=== PATIENT | male | born 1940 | race Caucasian/White ===

== ENCOUNTER 2017-09-10 07:03 | Emergency (ER) | payer MEDICARE ==
[2017-09-10 07:14] VITALS: RESP 18
[2017-09-10] MEDS ORDERED: SODIUM CHLORIDE 0.9% 1,000 ML IV STA (07:24)
[2017-09-10] MEDS ORDERED: PANTOPRAZOLE 40 MG/10 ML VIAL IVP STA (07:24)
[2017-09-10] MEDS ORDERED: LISINOPRIL 2.5 MG TAB PO STA (07:52)
--- NOTE | 2017-09-10 07:53 | ED ---
Recheck HPI - General Chief Complaint: Recheck/Abnormal Lab/Rx Stated Complaint: poss anxiety, poss low blood sugar Time Seen by Provider: 09/10/17 07:30 Source: patient, RN notes reviewed Mode of arrival: wheelchair Limitations: no limitations - History of Present Illness Initial Comments: This is a 77-year-old male with a history of a pacemaker who is here for evaluation after being sent over from the lab where he was to have blood drawn today. He recently is been taking care of his was been ill for last several years to having issues with what is thought to be esophageal spasm he was diagnosed with this possibility by his physician. He was given a small dose of Ativan to take when she does not like to take the findings with yesterday and states it did help. He's here today for evaluation he does have a history of occasional palpitations but no overt chest pain fevers chills nausea vomiting sweats or other symptoms at this time. He still doesn't quite feel right. He did have a new battery placed in March this past year. No other modifying factors at this time no recent illnesses. MD Complaint: other - Related Data Home Medications Medication Instructions Recorded Confirmed Aspirin [Adult Low Dose Aspirin EC] 81 mg PO DAILY 07/18/15 03/09/17 Lisinopril [Zestril] 2.5 mg PO BID 07/18/15 03/09/17 Metoprolol Succinate (ER) [Toprol 50 mg PO HS 07/19/15 03/09/17 XL] Levothyroxine Sodium [Synthroid] 25 mcg PO DAILY 09/13/15 03/09/17 Previous Rx's Medication Instructions Recorded Cephalexin [Keflex] 500 mg PO TID #15 cap 03/09/17 Allergies Allergy/AdvReac Type Severity Reaction Status Date / Time procaine [From Novocain] Allergy Rapid Verified 09/10/17 07:13 Heart Rate Review of Systems ROS Statement: Those systems with pertinent positive or pertinent negative responses have been documented in the HPI. ROS Other: All systems not noted in ROS Statement are negative. Past Medical History Past Medical History: Hyperlipidemia, Hypertension, Myocardial Infarction ([place]), Thyroid Disorder Additional Past Medical History / Comment(s): " See Dr. Carlisle's H&P. CYST ON KIDNEYS" pacemaker Last Myocardial Infarction Date:: 2008 History of Any Multi-Drug Resistant Organisms: None Reported Past Surgical History: Cholecystectomy, Heart Catheterization With Stent, Joint Replacement, Pacemaker Additional Past Surgical History / Comment(s): 08-03-15 HEART CATH W STENT TO RCA Past Anesthesia/Blood Transfusion Reactions: Postoperative Nausea & Vomiting ( PONV) Date of Last Stent Placement:: 2014 Type of Cardiac Device: Permanent Pacemaker Device Placement Date:: 2008 Past Psychological History: Anxiety Smoking Status: Former smoker Past Alcohol Use History: None Reported Past Drug Use History: None Reported - Past Family History Father Family Medical History: No Reported History Mother Additional Family Medical History / Comment(s): AA Brother(s) Family Medical History: Cancer General Exam - General Exam Comments Initial Comments: This is a well-developed well-nourished awake alert oriented times 3 male Limitations: no limitations General appearance: alert, in no apparent distress, anxious Head exam: Present: atraumatic, normocephalic, normal inspection Eye exam: Present: normal appearance, PERRL, EOMI. Absent: scleral icterus, conjunctival injection, periorbital swelling ENT exam: Present: normal exam, mucous membranes moist Neck exam: Present: normal inspection. Absent: tenderness, meningismus, lymphadenopathy Respiratory exam: Present: normal lung sounds bilaterally. Absent: respiratory distress, wheezes, rales, rhonchi, stridor Cardiovascular Exam: Present: regular rate, normal rhythm, normal heart sounds. Absent: systolic murmur, diastolic murmur, rubs, gallop, clicks GI/Abdominal exam: Present: soft, normal bowel sounds. Absent: distended, tenderness, guarding, rebound, rigid Extremities exam: Present: normal inspection, full ROM, normal capillary refill. Absent: tenderness, pedal edema, joint swelling, calf tenderness Back exam: Present: normal inspection Neurological exam: Present: alert, oriented X3, CN II-XII intact Psychiatric exam: Present: normal affect, anxious Skin exam: Present: warm, dry, intact, normal color. Absent: rash Course Vital Signs 09/10/17 09/10/17 07:09 08:03 Temperature 98.2 F Pulse Rate 67 71 Respiratory 18 18 Rate Blood Pressure 164/83 149/73 O2 Sat by Pulse 100 99 Oximetry Medical Decision Making - Medical Decision Making I did a long session with patient family regarding findings patient will be discharged with follow-up as planned with GI. We did discuss Ativan that he does have the take it if he needs a EKGs without become addictive. He was concerned about this. No further palpitations. - Lab Data Result diagrams: 09/10/17 07:49 09/10/17 07:49 Lab Results 09/10/17 09/10/17 09/10/17 Range/Units 07:49 07:49 07:49 WBC 6.0 (3.8-10.6) k/uL RBC 4.95 (4.30-5.90) m/uL Hgb 15.7 (13.0-17.5) gm/dL Hct 46.9 (39.0-53.0) % MCV 94.7 (80.0-100.0) fL MCH 31.6 (25.0-35.0) pg MCHC 33.4 (31.0-37.0) g/dL RDW 12.8 (11.5-15.5) % Plt Count 265 (150-450) k/uL Neutrophils % 74 % Lymphocytes % 15 % Monocytes % 7 % Eosinophils % 1 % Basophils % 0 % Neutrophils # 4.5 (1.3-7.7) k/uL Lymphocytes # 0.9 L (1.0-4.8) k/uL Monocytes # 0.4 (0-1.0) k/uL Eosinophils # 0.1 (0-0.7) k/uL Basophils # 0.0 (0-0.2) k/uL Sodium 141 (137-145) mmol/L Potassium 4.7 (3.5-5.1) mmol/L Chloride 106 (98-107) mmol/L Carbon Dioxide 21 L (22-30) mmol/L Anion Gap 14 mmol/L BUN 21 H (9-20) mg/dL Creatinine 0.90 (0.66-1.25) mg/dL Est GFR (CKD-EPI)AfAm >90 (>60 ml/min/1.73 sqM) Est GFR (CKD-EPI)NonAf 83 (>60 ml/min/1.73 sqM) Glucose 101 H (74-99) mg/dL Calcium 9.4 (8.4-10.2) mg/dL Magnesium 1.9 (1.6-2.3) mg/dL Total Bilirubin 0.8 (0.2-1.3) mg/dL AST 29 (17-59) U/L ALT 31 (21-72) U/L Alkaline Phosphatase 63 (38-126) U/L Total Creatine Kinase 59 (55-170) U/L CK-MB (CK-2) 0.8 (0.0-2.4) ng/mL CK-MB (CK-2) Rel Index 1.4 Troponin I <0.012 (0.000-0.034) ng/mL Total Protein 7.4 (6.3-8.2) g/dL Albumin 4.5 (3.5-5.0) g/dL Triglycerides 106 (<150) mg/dL Cholesterol 177 (<200) mg/dL LDL Cholesterol, Calc 108 H (0-99) mg/dL HDL Cholesterol 48 (40-60) mg/dL Amylase 113 H (30-110) U/L Lipase 178 (23-300) U/L TSH 3.130 (0.465-4.680) mIU/L - EKG Data -: EKG Interpreted by Me (Sinus rhythm left exodeviation LVH old inferior changes ventricular rate is) - Radiology Data Radiology results: report reviewed (I did review the imaging and report no acute findings.), image reviewed Disposition Clinical Impression: Palpitations, Anxiety, Feared condition not demonstrated Disposition: HOME SELF-CARE Condition: Good Instructions: Palpitations (ED), Anxiety (ED) Is patient prescribed a controlled substance at d/c from ED?: No Referrals: Pan Encinas MD [Primary Care Provider] - 1-2 days
[2017-09-10 08:11] LABS: Basophils % (A) 0 %; Eosinophils # (A) 0.1 k/uL (0-0.7); Eosinophils % (A) 1 %; HCT 46.9 % (39.0-53.0); HGB 15.7 gm/dL (13.0-17.5); Lymphocytes # (A) 0.9 k/uL (1.0-4.8); Lymphocytes % (A) 15 %; MCH 31.6 pg (25.0-35.0); MCHC 33.4 g/dL (31.0-37.0); MCV 94.7 fL (80.0-100.0); Mean Platelet Volume 7.3; Monocytes # (A) 0.4 k/uL (0-1.0); Monocytes % (A) 7 %; Neutrophils # (A) 4.5 k/uL (1.3-7.7); Neutrophils % (A) 74 %; Platelet Count 265 k/uL (150-450); RBC 4.95 m/uL (4.30-5.90); RDW 12.8 % (11.5-15.5)
[2017-09-10 08:18] LABS: ALT 31 U/L (21-72); AST 29 U/L (17-59); Albumin 4.5 g/dL (3.5-5.0); Alkaline Phosphatase 63 U/L (38-126); Amylase 113 U/L (30-110); Anion Gap 14 mmol/L; Blood Urea Nitrogen 21 mg/dL (9-20); Calcium 9.4 mg/dL (8.4-10.2); Carbon Dioxide 21 mmol/L (22-30); Chloride 106 mmol/L (98-107); Cholesterol 177 mg/dL (<200); Glucose 101 mg/dL (74-99); HDL Cholesterol 48 mg/dL (40-60); LDL Cholesterol,Calculated 108 mg/dL (0-99); Lipase 178 U/L (23-300); Magnesium 1.9 mg/dL (1.6-2.3); Potassium 4.7 mmol/L (3.5-5.1); Sodium 141 mmol/L (137-145); Total Bilirubin 0.8 mg/dL (0.2-1.3); Total Protein 7.4 g/dL (6.3-8.2); Triglycerides 106 mg/dL (<150)
--- NOTE | 2017-09-10 08:19 | XR ---
EXAMINATION TYPE: XR chest 2V DATE OF EXAM: 09/10/2017 COMPARISON: Chest x-ray August 29, 2015 HISTORY: Cough. Chest discomfort. TECHNIQUE: Frontal and lateral views of the chest are obtained. FINDINGS: Small calcified nodules left lung apex are redemonstrated. There is no focal air space opac ity, pleural effusion, or pneumothorax seen. The cardiac silhouette size is within normal limits wit h dual lead pacemaker/AICD redemonstrated. Large clips left humeral head level are again identified. IMPRESSION: No acute cardiopulmonary process. No significant change from prior.
[2017-09-10 08:27] LABS: Creatine Kinase 59 U/L (55-170)
[2017-09-10 08:40] LABS: Creatine Kinase MB 0.8 ng/mL (0.0-2.4); Troponin I <0.012 ng/mL (0.000-0.034)
[2017-09-10 09:40] VITALS: BP 150/72; PULSE 81; TEMP 97.4
== END 2017-09-10 09:38 | disposition home or self-care (01) ==
LOC: EC 07:03
DX: F41.9 Anxiety disorder, unspecified (principal); R00.2 Palpitations; I10 Essential (primary) hypertension; I25.2 Old myocardial infarction; E07.9 Disorder of thyroid, unspecified; Z95.0 Presence of cardiac pacemaker; Z95.5 Presence of coronary angioplasty implant and graft; Z87.891 Personal history of nicotine dependence; Z79.82 Long term (current) use of aspirin; Z79.899 Other long term (current) drug therapy; Z88.4 Allergy status to anesthetic agent
CPT/HCPCS: 36415; 71046; 80053; 80061; 82150; 82550; 82553; 83690; 83735; 84443; 84484; 85025; 93005; 99284

== ENCOUNTER → 2017-09-10 | Outpatient (CLI) | payer MEDICARE | END | disposition home or self-care (01) | LOC: LABWHC1 06:46 | PROVIDERS: ATTEND Internal Medicine | DX: Z53.9 Procedure and treatment not carried out, unspecified reason (principal) ==

== ENCOUNTER 2017-09-28 07:40 | Day surgery (SDC) | payer MEDICARE ==
[2017-09-26 12:18] VITALS: BMI 24.3
[~2017-09-28 07:40] MED LIST: LACTATED RINGERS 1,000 ML IV SCH
[2017-09-28 08:38] VITALS: RESP 16; TEMP 98.5
[2017-09-28] MEDS ORDERED: LIDOCAINE 1% 20 ML VIAL (10MG/ML) FOR IV START INTRADERMA ONE (08:48)
[2017-09-28 08:53] LABS: Glucose,Whole Blood 91 mg/dL (75-99)
[2017-09-28] MEDS ORDERED: fentaNYL (PF) 50 MCG/ML 2 ML AMP ONE (09:23)
[2017-09-28] MEDS ORDERED: MIDAZOLAM 2 MG/2 ML VIAL ONE (09:23)
[2017-09-28] MEDS ORDERED: PROPOFOL 10 MG/ML 20 ML VIAL IV ONE (09:23)
--- NOTE | 2017-09-28 09:37 | P.PCN ---
Date of Procedure: 09/28/17 Procedure(s) Performed: BRIEF HISTORY: Patient is a 77-year-old, pleasant, male, scheduled for an upper endoscopy as a part of evaluation of intermittent heartburn, passive regurgitation and allow for the last 3 months duration. He was recently started on Prilosec 20 mg daily and symptoms have improved. He is having episodes of passive regurgitation with bending and occasional esophageal spasms while in distress. He is hence scheduled for an upper endoscopy to evaluate further PROCEDURE PERFORMED: Esophagogastroduodenoscopy with biopsy. PREOPERATIVE DIAGNOSIS: And GERD/esophageal spasm. IV sedation per anesthesia. PROCEDURE: After informed consent was obtained, the patient was brought into the endoscopy unit. IV sedation was administered by Anesthesia under continuous monitoring. Initially the Olympus GIF-140 video endoscope was inserted into the mouth. Esophagus intubated without any difficulty. It was gradually advanced into the stomach and duodenum and carefully examined. The bulb and the second part of the duodenum appeared normal. The scope at this time was withdrawn to the stomach, adequately insufflated with air, and upon careful examination, mucosa of the antrum, body, cardia and the fundus appeared normal. The scope was then withdrawn into the esophagus. Small hiatal hernia noted. The GE junction was located at 39 cm from the incisors. There was a short segment of Aguirre's esophagus and a 5 mm possible to the GE junction and this was biopsied. The rest of the esophagus appeared normal. There were no erosions or ulcerations seen and the patient tolerated the procedure well. IMPRESSION: 1. Small hiatal hernia. 2. Short segment Aguirre's esophagus status post. RECOMMENDATIONS: The findings of this examination were discussed with the patient is well as his family. He was advised to follow with the biopsy results. If the biopsy confirms the presence of Aguirre's esophagus, he can have a repeat upper endoscopy in 2 years. He was advised to remain on Prilosec 20 mg daily and follow antireflux measures..
[2017-09-28 10:04] VITALS: BP 132/85; PULSE 63
== END 2017-09-28 10:31 | disposition home or self-care (01) ==
LOC: ORWHC2ENDO 07:40
PROVIDERS: ATTEND Internal Medicine Gastroenterology
DX: K21.0 Gastro-esophageal reflux disease with esophagitis (principal); K22.4 Dyskinesia of esophagus; K44.9 Diaphragmatic hernia without obstruction or gangrene; K22.70 Barrett's esophagus without dysplasia; I10 Essential (primary) hypertension; E78.5 Hyperlipidemia, unspecified; E07.9 Disorder of thyroid, unspecified; I25.10 Atherosclerotic heart disease of native coronary artery without angina pectoris; I25.2 Old myocardial infarction; Z95.0 Presence of cardiac pacemaker; Z95.5 Presence of coronary angioplasty implant and graft; Z79.890 Hormone replacement therapy; Z79.899 Other long term (current) drug therapy; Z88.4 Allergy status to anesthetic agent
CPT/HCPCS: 88305; 43239; J2250; J3010; J2704

== ENCOUNTER → 2018-07-18 | Outpatient (CLI) | payer MEDICARE ==
--- NOTE | 2018-07-18 07:54 | XR ---
EXAMINATION TYPE: XR chest 2V DATE OF EXAM: 07/18/2018 COMPARISON: 09/10/2017 HISTORY: Shortness of breath TECHNIQUE: Frontal and lateral views of the chest are obtained. FINDINGS: Scattered senescent parenchymal changes noted. Hyperinflation compatible with COPD. No evidence for infiltrate. No evidence for atelectasis. Heart size is stable. Mediastinal structures are stable and grossly unremarkable. No evidence for hilar prominence. Degenerative changes dorsal spine. IMPRESSION: 1. No evidence for acute pulmonary disease.
== END | disposition home or self-care (01) ==
LOC: RADXRMAIN 06:03
PROVIDERS: ATTEND Internal Medicine Cardiovascular Disease
DX: I25.5 Ischemic cardiomyopathy (principal)
CPT/HCPCS: 71046

== ENCOUNTER → 2019-03-06 | Outpatient (CLI) | payer MEDICARE ==
--- NOTE | 2019-03-06 12:02 | US ---
EXAMINATION TYPE: US kidneys/renal and bladder DATE OF EXAM: 03/06/2019 COMPARISON: CT 2012 CLINICAL HISTORY: N28.0 Renal cyst. History of renal cysts EXAM MEASUREMENTS: Right Kidney: 10.7 x 5.6 x 5.8 cm Left Kidney: 12.2 x 5.4 x 5.4 cm Right Kidney: multiple small cortical cystic areas with largest measuring 1.5cm, 0.5cm echogenic focu s superior pole Left Kidney: multiple cystic areas with largest measuring 4.1 x 4.3 x 4.0cm Bladder: wnl Bilateral Jets seen: yes There is no evidence for hydronephrosis at this point in time. No nephrolithiasis is seen. No suspi cious masses are identified. The urinary bladder is anechoic. Bilateral ureteral jets are seen. IMPRESSION: Multiple bilateral renal cysts are seen that appears simple in nature with increased thro ugh transmission. The largest on the left measures 4.1 cm and on the right measures 1.5 cm.
== END ==
LOC: RADUSWWP 10:50
PROVIDERS: ATTEND Urology
DX: N28.1 Cyst of kidney, acquired (principal)
CPT/HCPCS: 76770

== ENCOUNTER → 2019-12-19 | Outpatient (CLI) | payer MEDICARE ==
[2019-12-19 08:38] LABS: HCT 46.6 % (39.0-53.0); MCH 30.9 pg (25.0-35.0); MCHC 32.2 g/dL (31.0-37.0); MCV 95.9 fL (80.0-100.0); Mean Platelet Volume 7.6; Platelet Count 260 k/uL (150-450); RBC 4.86 m/uL (4.30-5.90); RDW 12.4 % (11.5-15.5); WBC 6.6 k/uL (3.8-10.6)
[2019-12-19 08:54] LABS: Appearance,Urine Cloudy (Clear); Bacteria,Urine Rare /hpf; Bilirubin,Urine Negative (Negative); Blood,Urine Trace (Negative); Color,Urine Light Yellow; Glucose,Urine (UA) Negative (Negative); Ketones,Urine Negative (Negative); Leukocyte Esterase,Urine Negative (Negative); Mucus,Urine Rare /hpf; Nitrite,Urine Negative (Negative); PH, Urine 5.5 (5.0-8.0); Protein,Urine Negative (Negative); RBC,Urine 8 /hpf (0-5); Specific Gravity,Urine 1.012 (1.001-1.035); Urobilinogen,Urine <2.0 mg/dL (<2.0); WBC,Urine <1 /hpf (0-5)
[2019-12-19 18:33] LABS: African American GFR (CKD) 94.5 (60.0-200.0); Albumin 4.1 g/dL (3.80-4.90); Albumin/Globulin Ratio 1.86 (1.60-3.17); Anion Gap 8.6 mmol/L (4.00-12.00); BUN/Creat Ratio 24.44 Ratio (12.00-20.00); Calcium 8.9 mg/dL (8.7-10.3); Carbon Dioxide 21.4 mmol/L (21.6-31.8); Globulin 2.2 g/dL (1.6-3.3); Non-African American GFR(CKD) 81.5 (60.0-200.0); Potassium 4.5 mmol/L (3.5-5.5); Total Bilirubin 0.7 mg/dL (0.2-1.2); Total Protein 6.3 g/dL (6.2-8.2)
[2019-12-19 18:42] LABS: T4, Free (Free Thyroxine) 1.4 ng/dL (0.80-1.80)
== END | disposition home or self-care (01) ==
LOC: LABWHC1 07:05
PROVIDERS: ATTEND Physician Assistant
DX: Z00.00 Encounter for general adult medical examination without abnormal findings (principal); Z13.220 Encounter for screening for lipoid disorders; R53.83 Other fatigue
CPT/HCPCS: 36415; 80053; 81001; 84439; 84443; 85027

== ENCOUNTER → 2020-02-13 | Outpatient (CLI) | payer MEDICARE ==
[2020-02-13 11:08] LABS: Chol/HDL Ratio 3.9; LDL Cholesterol,Calculated 123.6 mg/dL (0.0-131.0); VLDL Calculation 18.4 mg/dL (5.00-40.00)
== END | disposition home or self-care (01) ==
LOC: LABWHC1 07:01
PROVIDERS: ATTEND Internal Medicine
DX: E78.5 Hyperlipidemia, unspecified (principal)
CPT/HCPCS: 36415; 80061

== ENCOUNTER 2020-12-02 10:47 | Inpatient (IN) | payer MEDICARE ==
[2020-12-02] MEDS ORDERED: SODIUM CHLORIDE 0.9% 500 ML 500 ML IV STA (10:55)
[2020-12-02] MEDS ORDERED: AMIODARONE 360 MG in DEXTROSE 5% IN WATER 200 ML IV ONE ×2 (10:56)
--- NOTE | 2020-12-02 11:00 | ED ---
General Adult HPI - General Stated complaint: chest pain Time Seen by Provider: 12/02/20 10:50 Source: patient, RN notes reviewed, old records reviewed - History of Present Illness Initial comments: This is a 80-year-old male with a past medical history significant for coronary artery disease. Patient states that multiple stents placed in the past. Patient states he has ICD. Patient states he was golfing felt fine and he felt a little lightheaded and is defibrillator shocked him after chocked and he went down to his knees and then got up and started to walk it shocked him again he started walking again and shocked him a time. When EMS arrived patient was in trigeminy and then went into bigeminy and then they saw runs of V. tach and stated that the patient again felt lightheaded gave the patient 150 mg of amiodarone. Patient currently states he feels at his baseline he has no chest pain no palpitations no difficulty breathing shortness breath. Patient states he did have a discomfort in his chest just prior to him being shocked he states he thought it might be an esophageal spasm. Patient denies any abdominal pain patient denies nausea vomiting diarrhea. Patient denies having any fever chills or cough. - Related Data Home Medications Medication Instructions Recorded Confirmed lisinopriL [Zestril] 2.5 mg PO BID 07/18/15 09/28/17 Levothyroxine Sodium [Synthroid] 25 mcg PO DAILY 09/13/15 09/28/17 LORazepam [Ativan] 0.5 mg PO TID PRN 09/26/17 09/28/17 Allergies Allergy/AdvReac Type Severity Reaction Status Date / Time codeine AdvReac Abdominal Verified 12/02/20 12:13 Pain procaine [From Novocain] AdvReac Rapid Verified 12/02/20 12:12 Heart Rate Review of Systems ROS Statement: Those systems with pertinent positive or pertinent negative responses have been documented in the HPI. ROS Other: All systems not noted in ROS Statement are negative. Past Medical History Past Medical History: GERD/Reflux, Hyperlipidemia, Hypertension, Myocardial Infarction ([place]), Thyroid Disorder Additional Past Medical History / Comment(s): HX BRADYCARDIA. SM BENIGN CYSTS ON KIDNEYS. Pacemaker. HYPOGLYCEMIA. C/O "SPASMS IN LOWER PART OF ESOPHAGUS OCC," ALOT OF BELCHING. HX VARICOSE VEINS. Last Myocardial Infarction Date:: 2008 History of Any Multi-Drug Resistant Organisms: None Reported Past Surgical History: Cholecystectomy, Heart Catheterization With Stent, Joint Replacement, Pacemaker Additional Past Surgical History / Comment(s): 08-03-15 HEART CATH W STENT TO RCA. STATES "3 STENTS." PACEMAKER 2009; GENERATOR CHANGE 03/2017. VARICOSE VEIN LASER PROC ANI. COLONOSCOPY. Past Anesthesia/Blood Transfusion Reactions: Postoperative Nausea & Vomiting (PONV) Date of Last Stent Placement:: 2015 Type of Cardiac Device: Permanent Pacemaker Device Placement Date:: 2008 Past Psychological History: Anxiety Past Alcohol Use History: None Reported Additional Past Alcohol Use History / Comment(s): STARTED SMOKING AT AGE 19 SMOKED 1 PPD, QUIT 2008. NO ETOH USE IN 20 YEARS Past Drug Use History: None Reported - Past Family History Mother Additional Family Medical History / Comment(s): AA Brother(s) Family Medical History: Cancer General Exam - General Exam Comments Initial Comments: GENERAL: Patient is well-developed and well-nourished. Patient is nontoxic and well- hydrated and is in no acute distress. ENT: Neck is soft and supple. No significant lymphadenopathy is noted. Oropharynx is clear. Moist mucous membranes. Neck has full range of motion without eliciting any pain. EYES: The sclera were anicteric and conjunctiva were pink and moist. Extraocular movements were intact and pupils were equal round and reactive to light. Eyelids were unremarkable. PULMONARY: Unlabored respirations. Good breath sounds bilaterally. No audible rales rhonchi or wheezing was noted. CARDIOVASCULAR: There is a regular rate and rhythm without any murmurs gallops or rubs. Patient has an occasional extrasystole ABDOMEN: Soft and nontender with normal bowel sounds. No palpable organomegaly was noted. There is no palpable pulsatile mass. SKIN: Skin is clear with no lesions or rashes and otherwise unremarkable. NEUROLOGIC: Patient is alert and oriented x3. Cranial nerves II through XII are grossly intact. Motor and sensory are also intact. Normal speech, volume and content. Symmetrical smile. MUSCULOSKELETAL: Normal extremities with adequate strength and full range of motion. No lower extremity swelling or edema. No calf tenderness. LYMPHATICS: No significant lymphadenopathy is noted PSYCHIATRIC: Normal psychiatric evaluation. Course Vital Signs 12/02/20 12/02/20 10:51 11:41 Temperature 98.0 F Pulse Rate 96 96 Respiratory 18 18 Rate Blood Pressure 131/81 123/74 O2 Sat by Pulse 100 98 Oximetry Medical Decision Making - Medical Decision Making EKG shows sinus rhythm at 97 bpm AK interval is 176 QRS is 108 QT interval 370 QTC is 480. Patient's EKG shows multiple PVCs and there is no ST segment elevation or depression noted. Chest x-ray shows no acute abnormality. Patient was started on an amiodarone drip immediately. I started the patient on heparin after speaking with Dr. Marte. I spoke with cardiology soon as I got out of the room and Dr. Marte showed up and saw the patient in the emergency department. I spoke with some physicians agreed to admit the patient admitted the patient wrote admitting orders. - Lab Data Result diagrams: 12/02/20 11:01 12/02/20 11:01 Lab Results 12/02/20 12/02/20 12/02/20 Range/Units 11:01 11:01 11:01 WBC 6.6 (3.8-10.6) k/uL RBC 4.61 (4.30-5.90) m/uL Hgb 15.3 (13.0-17.5) gm/dL Hct 45.1 (39.0-53.0) % MCV 97.8 (80.0-100.0) fL MCH 33.1 (25.0-35.0) pg MCHC 33.9 (31.0-37.0) g/dL RDW 13.8 (11.5-15.5) % Plt Count 233 (150-450) k/uL MPV 8.0 Neutrophils % 78 % Lymphocytes % 13 % Monocytes % 6 % Eosinophils % 1 % Basophils % 0 % Neutrophils # 5.1 (1.3-7.7) k/uL Lymphocytes # 0.9 L (1.0-4.8) k/uL Monocytes # 0.4 (0-1.0) k/uL Eosinophils # 0.0 (0-0.7) k/uL Basophils # 0.0 (0-0.2) k/uL PT 10.8 (9.0-12.0) sec INR 1.0 (<1.2) APTT 25.2 (22.0-30.0) sec Sodium 138 (137-145) mmol/L Potassium 3.6 (3.5-5.1) mmol/L Chloride 107 (98-107) mmol/L Carbon Dioxide 19 L (22-30) mmol/L Anion Gap 12 mmol/L BUN 17 (9-20) mg/dL Creatinine 0.93 (0.66-1.25) mg/dL Est GFR (CKD-EPI)AfAm >90 (>60 ml/min/1.73 sqM) Est GFR (CKD-EPI)NonAf 78 (>60 ml/min/1.73 sqM) Glucose 108 H (74-99) mg/dL Calcium 9.1 (8.4-10.2) mg/dL Magnesium 1.7 (1.6-2.3) mg/dL Total Bilirubin 1.0 (0.2-1.3) mg/dL AST 69 H (17-59) U/L ALT 84 H (4-49) U/L Alkaline Phosphatase 103 (38-126) U/L Troponin I (0.000-0.034) ng/mL Total Protein 6.8 (6.3-8.2) g/dL Albumin 4.0 (3.5-5.0) g/dL 12/02/20 Range/Units 11:01 WBC (3.8-10.6) k/uL RBC (4.30-5.90) m/uL Hgb (13.0-17.5) gm/dL Hct (39.0-53.0) % MCV (80.0-100.0) fL MCH (25.0-35.0) pg MCHC (31.0-37.0) g/dL RDW (11.5-15.5) % Plt Count (150-450) k/uL MPV Neutrophils % % Lymphocytes % % Monocytes % % Eosinophils % % Basophils % % Neutrophils # (1.3-7.7) k/uL Lymphocytes # (1.0-4.8) k/uL Monocytes # (0-1.0) k/uL Eosinophils # (0-0.7) k/uL Basophils # (0-0.2) k/uL PT (9.0-12.0) sec INR (<1.2) APTT (22.0-30.0) sec Sodium (137-145) mmol/L Potassium (3.5-5.1) mmol/L Chloride (98-107) mmol/L Carbon Dioxide (22-30) mmol/L Anion Gap mmol/L BUN (9-20) mg/dL Creatinine (0.66-1.25) mg/dL Est GFR (CKD-EPI)AfAm (>60 ml/min/1.73 sqM) Est GFR (CKD-EPI)NonAf (>60 ml/min/1.73 sqM) Glucose (74-99) mg/dL Calcium (8.4-10.2) mg/dL Magnesium (1.6-2.3) mg/dL Total Bilirubin (0.2-1.3) mg/dL AST (17-59) U/L ALT (4-49) U/L Alkaline Phosphatase (38-126) U/L Troponin I 0.075 H* (0.000-0.034) ng/mL Total Protein (6.3-8.2) g/dL Albumin (3.5-5.0) g/dL Critical Care Time Critical Care Time: Yes Total Critical Care Time: 35 Disposition Clinical Impression: Elevated troponin, Ventricular tachycardia Disposition: ADMITTED IP TO THIS HOSP Referrals: Jennifer Ivey MD [Primary Care Provider] - 1-2 days Time of Disposition: 12:10
[2020-12-02 11:14] LABS: Basophils % (A) 0 %; Eosinophils % (A) 1 %; HCT 45.1 % (39.0-53.0); HGB 15.3 gm/dL (13.0-17.5); Lymphocytes # (A) 0.9 k/uL (1.0-4.8); Lymphocytes % (A) 13 %; MCH 33.1 pg (25.0-35.0); MCHC 33.9 g/dL (31.0-37.0); MCV 97.8 fL (80.0-100.0); Monocytes # (A) 0.4 k/uL (0-1.0); Monocytes % (A) 6 %; Neutrophils # (A) 5.1 k/uL (1.3-7.7); Neutrophils % (A) 78 %; Platelet Count 233 k/uL (150-450); RBC 4.61 m/uL (4.30-5.90); RDW 13.8 % (11.5-15.5); WBC 6.6 k/uL (3.8-10.6)
[2020-12-02 11:24] LABS: ALT 84 U/L (4-49); AST 69 U/L (17-59); African American GFR (CKD) >90 (>60 ml/min/1.73 sqM); Alkaline Phosphatase 103 U/L (38-126); Anion Gap 12 mmol/L; Blood Urea Nitrogen 17 mg/dL (9-20); Calcium 9.1 mg/dL (8.4-10.2); Carbon Dioxide 19 mmol/L (22-30); Chloride 107 mmol/L (98-107); Glucose 108 mg/dL (74-99); Magnesium 1.7 mg/dL (1.6-2.3); Non-African American GFR(CKD) 78 (>60 ml/min/1.73 sqM); Potassium 3.6 mmol/L (3.5-5.1); Sodium 138 mmol/L (137-145); Total Protein 6.8 g/dL (6.3-8.2)
--- NOTE | 2020-12-02 11:50 | XR ---
EXAMINATION TYPE: XR chest 1V portable DATE OF EXAM: 12/02/2020 COMPARISON: Chest x-ray July 18, 2018 HISTORY: Chest pain. TECHNIQUE: Single AP portable frontal view of the chest is obtained. FINDINGS: There is persistent elevated left hemidiaphragm. There new patchy left basilar lateral opac ity noted on back while mild chronic parenchymal change. The cardiac silhouette size is mildly enlarg ed with dual lead pacemaker/defibrillator redemonstrated. The osseous structures are demineralized. Suspect fracture deformity right proximal humerus partially imaged. IMPRESSION: Chronic changes and cardiomegaly with patchy lateral left basilar acute infiltrate and/o r atelectasis.
[2020-12-02 11:51] LABS: Partial Thromboplastin Time 25.2 sec (22.0-30.0); Prothrombin Time 10.8 sec (9.0-12.0)
[2020-12-02] MEDS ORDERED: NITROGLYCERIN SL TABS 0.4 MG TAB SUBLINGUAL PRN (12:11)
[2020-12-02] MEDS ORDERED: HEPARIN SODIUM 1,000 UN/ML (10ML VL) IV ONE (12:14)
--- NOTE | 2020-12-02 12:29 | P.CRDCN ---
History of Present Illness Consult date: 12/02/20 Chief complaint: ICD shocks History of present illness: This is a pleasant 80-year-old gentleman with a past medical history significant for coronary artery disease and prior stenting of the RCA back in 2015, cardiomyopathy with the last echocardiogram showing an ejection fraction around 35%, status post AICD, hypertension, and dyslipidemia. We consulted to see the patient in the emergency department for further evaluation off ICD shocks. The patient was in his usual state of health where he was golfing earlier today when he received ICD shocks 3 times [id number]. But before that and for the last 24 hours he has been experiencing intermittent episodes of dizziness and lightheadedness associated was flushed feeling in the face without any presyncope or syncope. No symptoms of chest pain or chest discomfort and no shortness of breath. And again the patient did not have clear-cut evidence of loss of consciousness. When the patient arrived to the emergency department he was started on amiodarone IV and since then he did not receive any ICD shocks. Currently he is hemodynamically stable. Electrolytes are within normal limits was borderline low potassium. Magnesium is within normal limits. The first set of troponin came in to be slightly abnormal. The chest x-ray is unremarkable. The AICD is in process to be interrogated to find out if the shocks are appropriate or inappropriate. The patient does not have any history of atrial fibrillation or SVT. Past Medical History Past Medical History: GERD/Reflux, Hyperlipidemia, Hypertension, Myocardial Infarction ([place]), Thyroid Disorder Additional Past Medical History / Comment(s): HX BRADYCARDIA. SM BENIGN CYSTS ON KIDNEYS. Pacemaker. HYPOGLYCEMIA. C/O "SPASMS IN LOWER PART OF ESOPHAGUS OCC," ALOT OF BELCHING. HX VARICOSE VEINS. Last Myocardial Infarction Date:: 2008 History of Any Multi-Drug Resistant Organisms: None Reported Past Surgical History: Cholecystectomy, Heart Catheterization With Stent, Joint Replacement, Pacemaker Additional Past Surgical History / Comment(s): 08-03-15 HEART CATH W STENT TO RCA. STATES "3 STENTS." PACEMAKER 2009; GENERATOR CHANGE 03/2017. VARICOSE VEIN LASER PROC ANI. COLONOSCOPY. Past Anesthesia/Blood Transfusion Reactions: Postoperative Nausea & Vomiting (PONV) Date of Last Stent Placement:: 2015 Type of Cardiac Device: Permanent Pacemaker Device Placement Date:: 2008 Past Psychological History: Anxiety Past Alcohol Use History: None Reported Additional Past Alcohol Use History / Comment(s): STARTED SMOKING AT AGE 19 SMOKED 1 PPD, QUIT 2008. NO ETOH USE IN 20 YEARS Past Drug Use History: None Reported - Past Family History Mother Additional Family Medical History / Comment(s): AA Brother(s) Family Medical History: Cancer Medications and Allergies Home Medications Medication Instructions Recorded Confirmed Type lisinopriL [Zestril] 2.5 mg PO BID 07/18/15 12/02/20 History Levothyroxine Sodium [Synthroid] 25 mcg PO DAILY 09/13/15 12/02/20 History Amoxicillin 500 mg PO Q8H 12/02/20 12/02/20 History Azelastine HCl [Optivar 0.05% 1 drop BOTH EYES BID PRN 12/02/20 12/02/20 History Ophth Soln] Chlorhexidine Gluconate [Peridex] 15 ml PO BID 12/02/20 12/02/20 History Allergies Allergy/AdvReac Type Severity Reaction Status Date / Time codeine AdvReac Abdominal Verified 12/02/20 12:13 Pain procaine [From Novocain] AdvReac Rapid Verified 12/02/20 12:12 Heart Rate Physical Exam Vitals: Vital Signs Temp Pulse Resp BP Pulse Ox 12/02/20 11:41 96 18 123/74 98 12/02/20 10:51 98.0 F 96 18 131/81 100 Intake and Output 12/01/20 12/02/20 12/02/20 22:59 06:59 14:59 Other: Weight 74.389 kg - Constitutional General appearance: no acute distress - Respiratory Respiratory: bilateral: CTA - Cardiovascular Rhythm: regular Heart sounds: normal: S1, S2 Abnormal Heart Sounds: systolic murmur Results 12/02/20 11:01 12/02/20 11:01 Cardiac Enzymes 12/02/20 12/02/20 Range/Units 11:01 11:01 AST 69 H (17-59) U/L Troponin I 0.075 H* (0.000-0.034) ng/mL Coagulation 12/02/20 Range/Units 11:01 PT 10.8 (9.0-12.0) sec APTT 25.2 (22.0-30.0) sec CBC 12/02/20 Range/Units 11:01 WBC 6.6 (3.8-10.6) k/uL RBC 4.61 (4.30-5.90) m/uL Hgb 15.3 (13.0-17.5) gm/dL Hct 45.1 (39.0-53.0) % Plt Count 233 (150-450) k/uL Comprehensive Metabolic Panel 12/02/20 Range/Units 11:01 Sodium 138 (137-145) mmol/L Potassium 3.6 (3.5-5.1) mmol/L Chloride 107 (98-107) mmol/L Carbon Dioxide 19 L (22-30) mmol/L BUN 17 (9-20) mg/dL Creatinine 0.93 (0.66-1.25) mg/dL Glucose 108 H (74-99) mg/dL Calcium 9.1 (8.4-10.2) mg/dL AST 69 H (17-59) U/L ALT 84 H (4-49) U/L Alkaline Phosphatase 103 (38-126) U/L Total Protein 6.8 (6.3-8.2) g/dL Albumin 4.0 (3.5-5.0) g/dL Current Medications Generic Name Dose Route Start Last Admin Trade Name Freq PRN Reason Stop Dose Admin Aspirin 325 mg 12/03/20 09:00 Aspirin 325 Mg Tab PO DAILY HOLLIS Amiodarone HCl 360 mg/ 200 mls @ 33.333 mls/hr 12/02/20 10:56 12/02/20 11:30 Dextrose/Water IV 12/02/20 16:55 1 mg/min .Q6H ONE 33.333 mls/hr Administration Protocol 1 MG/MIN Amiodarone HCl 450 mg/ 250 mls @ 16.667 mls/hr 12/02/20 16:55 Dextrose/Water IV 12/03/20 10:54 .Q15H HOLLIS Protocol 0.5 MG/MIN Heparin Sodium/Sodium Chloride 250 mls @ 8.927 mls/hr 12/02/20 12:15 25,000 unit/ Sodium Chloride IV .Q24H HOLLIS Protocol 12 UNITS/KG/HR Nitroglycerin 0.4 mg 12/02/20 12:11 Nitroglycerin Sl Tabs 0.4 Mg Tab SUBLINGUAL Q5M PRN Chest Pain Intake and Output 12/01/20 12/02/20 12/02/20 22:59 06:59 14:59 Other: Weight 74.389 kg Patient Weight 12/03/20 06:59 Weight 74.389 kg 12/02/20 11:01 12/02/20 11:01 Assessment and Plan Assessment: Assessment #1 AICD shocks #2 cardiomyopathy #3 coronary artery disease #4 hypertension #5 dyslipidemia Plan #1 agree to continue the current dose of amiodarone IV #2 consider mexiletine if he developed any more episodes of shock #3 continue monitoring the electrolytes and replace the potassium and magnesium #4 obtain TSH and free T4 #5 obtain an echocardiogram was Doppler #6 rule out acute coronary event #7 AICD interrogation #8 follow-up with the patient
[2020-12-02] MEDS: HEPARIN SOD,PORK IN 0.45% NACL 25,000 UNIT in 0.45% NACL 1 250ML.BAG IV SCH (12:55)
[2020-12-02] MEDS ORDERED: KETOTIFEN 0.025% OPHTH DROPS 5 ML BTL BOTH EYES PRN (13:26)
--- NOTE | 2020-12-02 13:35 | P.HPIM ---
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 tach, hypertension, hyperlipidemia, and hypothyroidism. Patient presented to the emergency department today status post reports of being shocked by his defibrillator 3 consecutive times. Patient reports while out on the golf course he suddenly felt a "head pope" in which he describes as almost a hot/flushed feeling in his face accompanied by slight tightness/esophageal spasm in his throat along with slight dizziness and lightheadedness followed by firing of his defibrillator 3 consecutive times. Patient states his friend was with him throughout entire event, and he denies having any loss of consciousness, chest pain, palpitations, shortness of breath, nausea, vomiting, diaphoresis, or experiencing any numbness/tingling/weakness in his extremities. Patient states the firing of his defibrillator did almost "knock the wind out of me for a moment" but states since event he is currently asymptomatic and experiencing no complaints. Per ED documentation patient was found by EMS to be in trigeminy followed by bigeminy with runs of V. tach and was given 150 mg of amiodarone while in route to our facility. Upon arrival to the emergency department, an EKG was completed showing sinus rhythm at 97 bpm with frequent PVCs. Patient was started on amiodarone infusion and labs were drawn. CBC, coagulation profile, and BMP were unremarkable. Troponin was elevated at 0.075 and patient with hypomagnesemia with magnesium of 1.7. Cardiology evaluated patient in ED patient started on heparin infusion and AICD was interrogated and currently awaiting interrogation report. Patient admitted under our services with consultation to cardiology. Review of systems: Pertinent positives and negatives as discussed in HPI, a complete review of systems was performed and all other systems are negative. Physical exam: Vital signs reviewed and stable. General: Nontoxic, no distress and appears stated age. Derm: Skin warm and dry, normal coloration for ethnicity. Head: Atraumatic, normocephalic and symmetric. Eyes: EOMs intact, no lid lag, and anicteric sclera Mouth: no lip lesions, mucus membranes moist Cardiovascular: Irregular rhythm with normal S1S2, no murmur, positive posterior tibial pulses bilaterally, and cap refill < 2 seconds. Lungs: Respirations even, regular, and unlabored on room air. Lungs CTA bilaterally, no rhonchi, no rales, no wheezing, and no accessory muscle usage. Abdominal: soft, nontender to palpation, no guarding, no appreciable organomegaly Ext: ROM intact. No gross muscle atrophy, no edema, no contractures Neuro: Speech clear, face symmetrical and CN II-XII grossly intact with no noted focal neuro deficits Psych: Alert and oriented to person, place, time, and situation. Appropriate and pleasant affect. Assessment and Plan of Care: Spontaneous firing of AICD with history of nonsustained V. tach and bradycardia with pacemaker/defibrillator placement, CAD with previous [place] and stent placement, and known ischemic cardiomyopathy with moderate to severely impaired EF between 30-35% -Continue titratable amiodarone infusion -Continue Heparin infusion, pharmacy to dose -Magnesium replaced and we will continue to monitor electrolytes and replace abnormalities as needed. -TSH with reflex free T4. -Cardiology following, appreciate further recommendations -Continuous telemetry monitoring -Daily aspirin -AICD was interrogated and currently awaiting interrogation report. Hypomagnesemia -Magnesium 1.7, replaced -We will continue to monitor closely with repeat a.m. labs. Hypertension -Monitor vital signs and continue daily medication regimen with lisinopril. Hypothyroidism -Continue home Synthroid 25 g each morning. -Obtain TSH with reflex free T4. Hyperlipidemia -Heart healthy diet -Lipid profile with a.m. labs The patient is admitted with an anticipated greater than 2 midnight stay for evaluation of spontaneous firing of AICD CODE STATUS: Full code DVT prophylaxis: Heparin Discussed with: Patient, patient's son, and RN Anticipated discharge date: Clinical course to determine Anticipated discharge place: Home A total of 45 minutes was spent on the care of this complex patient more than 50% of the time was spent in counseling and care coordination. Past Medical History Past Medical History: GERD/Reflux, Hyperlipidemia, Hypertension, Myocardial Infarction ([place]), Thyroid Disorder Additional Past Medical History / Comment(s): HX BRADYCARDIA. SM BENIGN CYSTS ON KIDNEYS. Pacemaker. HYPOGLYCEMIA. C/O "SPASMS IN LOWER PART OF ESOPHAGUS OCC," ALOT OF BELCHING. HX VARICOSE VEINS. Last Myocardial Infarction Date:: 2008 History of Any Multi-Drug Resistant Organisms: None Reported Past Surgical History: Cholecystectomy, Heart Catheterization With Stent, Joint Replacement, Pacemaker Additional Past Surgical History / Comment(s): 08-03-15 HEART CATH W STENT TO RCA. STATES "3 STENTS." PACEMAKER 2009; GENERATOR CHANGE 03/2017. VARICOSE VEIN LASER PROC ANI. COLONOSCOPY. Past Anesthesia/Blood Transfusion Reactions: Postoperative Nausea & Vomiting (PONV) Date of Last Stent Placement:: 2015 Type of Cardiac Device: Permanent Pacemaker Device Placement Date:: 2008 Past Psychological History: Anxiety Past Alcohol Use History: None Reported Additional Past Alcohol Use History / Comment(s): STARTED SMOKING AT AGE 19 SMOKED 1 PPD, QUIT 2008. NO ETOH USE IN 20 YEARS Past Drug Use History: None Reported - Past Family History Mother Additional Family Medical History / Comment(s): AA Brother(s) Family Medical History: Cancer Medications and Allergies Home Medications Medication Instructions Recorded Confirmed Type lisinopriL [Zestril] 2.5 mg PO BID 07/18/15 12/02/20 History Levothyroxine Sodium [Synthroid] 25 mcg PO DAILY 09/13/15 12/02/20 History Amoxicillin 500 mg PO Q8H 12/02/20 12/02/20 History Azelastine HCl [Optivar 0.05% 1 drop BOTH EYES BID PRN 12/02/20 12/02/20 History Ophth Soln] Chlorhexidine Gluconate [Peridex] 15 ml PO BID 12/02/20 12/02/20 History Allergies Allergy/AdvReac Type Severity Reaction Status Date / Time codeine AdvReac Abdominal Verified 12/02/20 12:13 Pain procaine [From Novocain] AdvReac Rapid Verified 12/02/20 12:12 Heart Rate Physical Exam Vitals: Vital Signs Temp Pulse Resp BP Pulse Ox 12/02/20 11:41 96 18 123/74 98 12/02/20 10:51 98.0 F 96 18 131/81 100 Intake and Output 12/01/20 12/02/20 12/02/20 22:59 06:59 14:59 Other: Weight 74.389 kg Results CBC & Chem 7: 12/02/20 11:01 12/02/20 11:01 Labs: Abnormal Lab Results - Last 24 Hours (Table) 12/02/20 12/02/20 12/02/20 Range/Units 11:01 11:01 11:01 Lymphocytes # 0.9 L (1.0-4.8) k/uL Carbon Dioxide 19 L (22-30) mmol/L Glucose 108 H (74-99) mg/dL AST 69 H (17-59) U/L ALT 84 H (4-49) U/L Troponin I 0.075 H* (0.000-0.034) ng/mL <Evelyn Quiñones - Last Filed: 12/02/20 19:39> History of Present Illness Patient seen and examined independently. Patient was also seen by Braden Montenegro NP and case was discussed. I am in agreement with subjective, physical exam, assessment and plan as written above and amended below. He denies any current chest discomfort, no nausea or vomiting. Recently did have some teeth surgery completed and does have some tooth pain. Denies any shortness of breath. He has had his ICD for approximately 10 years and has never fired. He did have a history of bradycardia. Is concerned about being put on metoprolol again as he has had difficulty with exercise intolerance and beta blockade in the past. General: non toxic, no distress, appears at stated age Derm: warm, dry Head: atraumatic, normocephalic, symmetric Eyes: EOMI, no lid lag, anicteric sclera Mouth: no lip lesion, mucus membranes moist Cardiovascular: S1S2 reg, no murmur, positive posterior tibial pulse bilateral, Lungs: CTA bilateral, no rhonchi, no rales , no accessory muscle use Abdominal: soft, nontender to palpation, no guarding, no appreciable organomegaly Ext: no gross muscle atrophy, no edema, no contractures Neuro: CN II-XI grossly intact, no focal neuro deficits Psych: Alert, oriented, appropriate affect Physical Exam Osteopathic Statement: *. No significant issues noted on an osteopathic str uctural exam other than those noted in the History and Physical/Consult. Vitals: Vital Signs Temp Pulse Pulse Resp BP BP Pulse Ox 12/02/20 14:55 97.5 F L 81 16 143/66 96 12/02/20 13:40 98 18 118/63 99 12/02/20 12:50 86 18 140/69 95 12/02/20 11:41 96 18 123/74 98 12/02/20 10:51 98.0 F 96 18 131/81 100 Intake and Output 12/02/20 12/02/20 12/02/20 06:59 14:59 22:59 Intake Total 580 Output Total 400 Balance 180 Intake: Intake, IV Titration 100 Amount Magnesium Sulfate-D5w Pmx 100 1 gm In Dextrose/Water 1 100ml.bag @ 100 mls/hr IVPB Q1H REPLACED BY [facility] Rx#: [id number] Oral 480 Output: Urine 400 Other: Weight 74.389 kg Results CBC & Chem 7: 12/02/20 11:01 12/02/20 11:01 Labs: Abnormal Lab Results - Last 24 Hours (Table) 12/02/20 12/02/20 12/02/20 Range/Units 11:01 11:01 11:01 Lymphocytes # 0.9 L (1.0-4.8) k/uL Carbon Dioxide 19 L (22-30) mmol/L Glucose 108 H (74-99) mg/dL AST 69 H (17-59) U/L ALT 84 H (4-49) U/L Troponin I 0.075 H* (0.000-0.034) ng/mL 12/02/20 Range/Units 13:42 Lymphocytes # (1.0-4.8) k/uL Carbon Dioxide (22-30) mmol/L Glucose (74-99) mg/dL AST (17-59) U/L ALT (4-49) U/L Troponin I 1.370 H* (0.000-0.034) ng/mL
[2020-12-02] MEDS ORDERED: ALPRAZolam 0.5 MG TAB PO STA (14:23)
[2020-12-02] MEDS: MAGNESIUM SULFATE-D5W PMX 1 GM in DEXTROSE/WATER 1 100ML.BAG IVPB SCH ×2 (14:42→18:37)
[2020-12-02] MEDS: AMIODARONE 450 MG in DEXTROSE 5% IN WATER 250 ML IV SCH ×2 (18:36)
[2020-12-02] MEDS: HYDROcodone/APAP 5-325MG 1 EACH TAB PO PRN (18:37)
[2020-12-03] MEDS: HYDROcodone/APAP 5-325MG 1 EACH TAB PO PRN ×2 (01:09→17:08)
[2020-12-03 04:29] LABS: HCT 41.5 % (39.0-53.0); HGB 14.1 gm/dL (13.0-17.5); MCH 34.1 pg (25.0-35.0); MCHC 34.1 g/dL (31.0-37.0); MCV 100.1 fL (80.0-100.0); Macrocytosis Slight; Mean Platelet Volume 8.3; Platelet Count 212 k/uL (150-450); RBC 4.14 m/uL (4.30-5.90); RDW 13.5 % (11.5-15.5); WBC 6.2 k/uL (3.8-10.6)
[2020-12-03 04:42] LABS: African American GFR (CKD) >90 (>60 ml/min/1.73 sqM); Anion Gap 6 mmol/L; Blood Urea Nitrogen 18 mg/dL (9-20); Calcium 8.3 mg/dL (8.4-10.2); Carbon Dioxide 22 mmol/L (22-30); Chloride 106 mmol/L (98-107); Glucose 95 mg/dL (74-99); Magnesium 2.3 mg/dL (1.6-2.3); Non-African American GFR(CKD) 83 (>60 ml/min/1.73 sqM); Potassium 3.8 mmol/L (3.5-5.1); Sodium 134 mmol/L (137-145)
[2020-12-03] MEDS ORDERED: HEPARIN SODIUM 1,000 UN/ML (10ML VL) IV PRN (05:45)
[2020-12-03] MEDS: LEVOTHYROXINE 25 MCG TAB PO SCH (05:46)
[2020-12-03] MEDS ORDERED: ASPIRIN 325 MG TAB PO SCH (09:00)
[2020-12-03] MEDS: AMIODARONE 450 MG in DEXTROSE 5% IN WATER 250 ML IV SCH ×2 (09:32)
--- NOTE | 2020-12-03 11:32 | P.PN ---
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 tach, hypertension, hyperlipidemia, and hypothyroidism. Patient presented to the emergency department today status post reports of being shocked by his defibrillator 3 consecutive times. Patient r eports while out on the golf course he suddenly felt a "head pope" in which he describes as almost a hot/flushed feeling in his face accompanied by slight tightness/esophageal spasm in his throat along with slight dizziness and lightheadedness followed by firing of his defibrillator 3 consecutive times. Patient states his friend was with him throughout entire event, and he denies having any loss of consciousness, chest pain, palpitations, shortness of breath, nausea, vomiting, diaphoresis, or experiencing any numbness/tingling/weakness in his extremities. Patient states the firing of his defibrillator did almost "knock the wind out of me for a moment" but states since event he is currently asymptomatic and experiencing no complaints. Per ED documentation patient was found by EMS to be in trigeminy followed by bigeminy with runs of V. tach and was given 150 mg of amiodarone while in route to our facility. Upon arrival to the emergency department, an EKG was completed showing sinus rhythm at 97 bpm with frequent PVCs. Patient was started on amiodarone infusion and labs were drawn. CBC, coagulation profile, and BMP were unremarkable. Troponin was elevated at 0.075 and patient with hypomagnesemia with magnesium of 1.7. Cardiology evaluated patient in ED patient started on heparin infusion and AICD was interrogated and currently awaiting interrogation report. Patient admitted under our services with consultation to cardiology. 12/03/20: Patient was seen and fully evaluated at the bedside this morning. He remains on amiodarone and heparin infusion. Troponins continue to elevate throughout the night from 0.075-1.370 and 1.530. Cardiology plans to take patient for cardiac catheterization later today. Patient currently denies having any headache, lightheadedness, dizziness, chest pain, palpitations, shortness of breath, or experiencing any numbness/tingling/weakness/swelling in his extremities. Labs reviewed. Echocardiogram being completed at this time. Physical exam: Vital signs reviewed and stable. General: Nontoxic, no distress and appears stated age. Derm: Skin warm and dry, normal coloration for ethnicity. Head: Atraumatic, normocephalic and symmetric. Eyes: EOMs intact, no lid lag, and anicteric sclera Mouth: no lip lesions, mucus membranes moist Cardiovascular: Regular rate and rhythm with normal S1S2, no murmur, positive posterior tibial pulses bilaterally, and cap refill < 2 seconds. AICD left anterior chest. Lungs: Respirations even, regular, and unlabored on room air. Lungs CTA bilaterally, no rhonchi, no rales, no wheezing, and no accessory muscle usage. Abdominal: soft, nontender to palpation, no guarding, no appreciable organomegaly Ext: ROM intact. No gross muscle atrophy, no edema, no contractures Neuro: Speech clear, face symmetrical and CN II-XII grossly intact with no noted focal neuro deficits Psych: Alert and oriented to person, place, time, and situation. Appropriate and pleasant affect. Assessment and Plan of Care: Spontaneous firing of AICD with history of nonsustained V. tach and bradycardia with pacemaker/defibrillator placement, CAD with previous CA and stent placement, and known ischemic cardiomyopathy with moderate to severely impaired EF between 30-35% Elevated troponin/NSTEMI -EKG was completed showing sinus rhythm at 97 bpm with frequent PVCs -Troponins elevated at 0.075, 1.370, and 1.530 -Complete amiodarone infusion as recommended by cardiology -Continue Heparin infusion with plans to take for cardiac catheterization later today -Cardiology following, plans for cardiac cath later today -Continuous telemetry monitoring -Daily aspirin -TSH was 2.550 -Initially hypomagnesemia, replaced Hypomagnesemia, resolved -We will continue to monitor closely with repeat a.m. labs. Hypertension -Monitor vital signs and continue daily medication regimen with lisinopril. Hypothyroidism -Continue home Synthroid 25 g each morning. -TSH 2.550 Hyperlipidemia -Heart healthy diet -Lipid profile with a.m. labs The patient is admitted with an anticipated greater than 2 midnight stay for evaluation of spontaneous firing of AICD CODE STATUS: Full code DVT prophylaxis: Heparin Discussed with: Patient, patient's son, and RN Anticipated discharge date: Clinical course to determine Anticipated discharge place: Home A total of 45 minutes was spent on the care of this complex patient more than 50% of the time was spent in counseling and care coordination. Objective - Vital Signs Vital signs: Vital Signs Temp 97.6 F 12/03/20 07:54 Pulse 62 12/03/20 07:54 Resp 20 12/03/20 07:54 BP 133/61 12/03/20 07:54 Pulse Ox 97 12/03/20 07:54 Intake & Output 12/02/20 12/03/20 12/03/20 18:59 06:59 18:59 Intake Total 580 771.777 248.894 Output Total 400 625 Balance 180 771.777 -376.106 Weight 74.389 kg 73.1 kg Intake: IV 50 Invasive Line 1 20 Invasive Line 2 10 Invasive Line 3 20 Intake, IV Titration 100 121.777 248.894 Amount Amiodarone 450 mg In 248.894 Dextrose 5% in Water 250 ml @ 0.5 MG/MIN 16.667 mls/hr IV .Q15H [facility] Rx#: [id number] Heparin Sod,Pork in 0.45% 121.777 NaCl 25,000 unit In 0.45 % NaCl 1 250ml.bag @ 12 UNITS/KG/HR 8.927 mls/hr IV .Q24H [facility] Rx#: [id number] Magnesium Sulfate-D5w Pmx 100 1 gm In Dextrose/Water 1 100ml.bag @ 100 mls/hr IVPB Q1H [facility] Rx#: [id number] Oral 480 600 Output: Urine 400 625 Other: # Voids 2 - Labs CBC & Chem 7: 12/03/20 03:23 12/03/20 03:23 Labs: Abnormal Lab Results - Last 24 Hours (Table) 12/02/20 12/02/20 12/02/20 Range/Units 11:01 13:42 18:43 RBC (4.30-5.90) m/uL MCV (80.0-100.0) fL APTT (22.0-30.0) sec Sodium (137-145) mmol/L Calcium (8.4-10.2) mg/dL Troponin I 0.075 H* 1.370 H* 1.530 H* (0.000-0.034) ng/mL 12/02/20 12/03/20 12/03/20 Range/Units 18:43 03:23 03:23 RBC (4.30-5.90) m/uL MCV (80.0-100.0) fL APTT >200.0 H* 36.1 H (22.0-30.0) sec Sodium 134 L (137-145) mmol/L Calcium 8.3 L (8.4-10.2) mg/dL Troponin I (0.000-0.034) ng/mL 12/03/20 Range/Units 03:23 RBC 4.14 L (4.30-5.90) m/uL MCV 100.1 H (80.0-100.0) fL APTT (22.0-30.0) sec Sodium (137-145) mmol/L Calcium (8.4-10.2) mg/dL Troponin I (0.000-0.034) ng/mL <Evelyn Quiñones - Last Filed: 12/03/20 18:56> Subjective Patient seen and examined independently. Patient was also seen by Braden Montenegro NP and case was discussed. I am in agreement with subjective, physical exam, assessment and plan as written above and amended below. Patient is currently chest pain free. He denies any nausea, vomiting. He did undergo cardiac cath and had one stent placed to the RCA. He is anxious to go home. General: non toxic, no distress, appears at stated age Derm: warm, dry Head: atraumatic, normocephalic, symmetric Eyes: EOMI, no lid lag, anicteric sclera Mouth: no lip lesion, mucus membranes moist Cardiovascular: S1S2 reg, no murmur, positive posterior tibial pulse bilateral, Lungs: CTA bilateral, no rhonchi, no rales , no accessory muscle use Neuro: CN II-XI grossly intact, no focal neuro deficits Psych: Alert, oriented, appropriate affect Objective - Vital Signs Vital signs: Vital Signs Temp 97.5 F L 12/03/20 12:16 Pulse 74 12/03/20 18:53 Resp 18 12/03/20 18:53 BP 115/68 12/03/20 18:53 Pulse Ox 96 12/03/20 18:53 Intake & Output 12/02/20 12/03/20 12/03/20 18:59 06:59 18:59 Intake Total 580 771.777 735.894 Output Total 400 625 Balance 180 771.777 110.894 Weight 74.389 kg 73.1 kg Intake: IV 50 250 Invasive Line 1 20 Invasive Line 2 10 Invasive Line 3 20 Intake, IV Titration 100 121.777 248.894 Amount Amiodarone 450 mg In 248.894 Dextrose 5% in Water 250 ml @ 0.5 MG/MIN 16.667 mls/hr IV .Q15H [facility] Rx#: [id number] Heparin Sod,Pork in 0.45% 121.777 NaCl 25,000 unit In 0.45 % NaCl 1 250ml.bag @ 12 UNITS/KG/HR 8.927 mls/hr IV .Q24H [facility] Rx#: [id number] Magnesium Sulfate-D5w Pmx 100 1 gm In Dextrose/Water 1 100ml.bag @ 100 mls/hr IVPB Q1H [facility] Rx#: [id number] Oral 480 600 237 Output: Urine 400 625 Other: # Voids 2 - Labs CBC & Chem 7: 12/03/20 03:23 12/03/20 03:23 Labs: Abnormal Lab Results - Last 24 Hours (Table) 12/02/20 12/02/20 12/03/20 Range/Units 18:43 18:43 03:23 RBC (4.30-5.90) m/uL MCV (80.0-100.0) fL APTT >200.0 H* 36.1 H (22.0-30.0) sec Sodium (137-145) mmol/L Calcium (8.4-10.2) mg/dL Troponin I 1.530 H* (0.000-0.034) ng/mL 12/03/20 12/03/20 12/03/20 Range/Units 03:23 03:23 11:35 RBC 4.14 L (4.30-5.90) m/uL MCV 100.1 H (80.0-100.0) fL APTT 45.9 H (22.0-30.0) sec Sodium 134 L (137-145) mmol/L Calcium 8.3 L (8.4-10.2) mg/dL Troponin I (0.000-0.034) ng/mL
--- NOTE | 2020-12-03 11:59 | P.PN ---
Subjective Progress Note Date: 12/03/20 Principal diagnosis: This is a very pleasant 80-year-old gentleman with coronary artery disease and ischemic cardiomyopathy as well as status post AICD who was admitted to the [facility] with ICD shocks. He was started on amiodarone IV. He was ruled in for acute coronary syndrome. The troponin came in to be elevated. The patient was seen this morning. He denies any symptoms of chest pain or chest discomfort or shortness of breath at this point. He has been maintaining normal sinus mechanism without any more episodes of VT. An echocardiogram is in process to be done. He is on aspirin as well as a statin but he is not on any beta katey because he is already bradycardic. The troponin came in to be elevated consistent with acute coronary syndrome. I advised the patient to undergo a heart catheterization. Objective - Vital Signs Vital signs: Vital Signs Temp 97.6 F 12/03/20 07:54 Pulse 62 12/03/20 07:54 Resp 20 12/03/20 07:54 BP 133/61 12/03/20 07:54 Pulse Ox 97 12/03/20 07:54 Intake & Output 12/02/20 12/03/20 12/03/20 18:59 06:59 18:59 Intake Total 580 771.777 248.894 Output Total 400 625 Balance 180 771.777 -376.106 Weight 74.389 kg 73.1 kg Intake: IV 50 Invasive Line 1 20 Invasive Line 2 10 Invasive Line 3 20 Intake, IV Titration 100 121.777 248.894 Amount Amiodarone 450 mg In 248.894 Dextrose 5% in Water 250 ml @ 0.5 MG/MIN 16.667 mls/hr IV .Q15H [facility] Rx#: [id number] Heparin Sod,Pork in 0.45% 121.777 NaCl 25,000 unit In 0.45 % NaCl 1 250ml.bag @ 12 UNITS/KG/HR 8.927 mls/hr IV .Q24H [facility] Rx#: [id number] Magnesium Sulfate-D5w Pmx 100 1 gm In Dextrose/Water 1 100ml.bag @ 100 mls/hr IVPB Q1H [facility] Rx#: [id number] Oral 480 600 Output: Urine 400 625 Other: # Voids 2 - Constitutional General appearance: Present: no acute distress - Respiratory Respiratory: bilateral: CTA - Cardiovascular Rhythm: regular Heart sounds: normal: S1, S2 - Labs CBC & Chem 7: 12/03/20 03:23 12/03/20 03:23 Labs: Abnormal Lab Results - Last 24 Hours (Table) 12/02/20 12/02/20 12/02/20 Range/Units 11:01 13:42 18:43 RBC (4.30-5.90) m/uL MCV (80.0-100.0) fL APTT (22.0-30.0) sec Sodium (137-145) mmol/L Calcium (8.4-10.2) mg/dL Troponin I 0.075 H* 1.370 H* 1.530 H* (0.000-0.034) ng/mL 12/02/20 12/03/20 12/03/20 Range/Units 18:43 03:23 03:23 RBC (4.30-5.90) m/uL MCV (80.0-100.0) fL APTT >200.0 H* 36.1 H (22.0-30.0) sec Sodium 134 L (137-145) mmol/L Calcium 8.3 L (8.4-10.2) mg/dL Troponin I (0.000-0.034) ng/mL 12/03/20 Range/Units 03:23 RBC 4.14 L (4.30-5.90) m/uL MCV 100.1 H (80.0-100.0) fL APTT (22.0-30.0) sec Sodium (137-145) mmol/L Calcium (8.4-10.2) mg/dL Troponin I (0.000-0.034) ng/mL Assessment and Plan Assessment: Assessment #1 AICD shocks #2 cardiomyopathy #3 acute coronary syndrome #4 hypertension #5 dyslipidemia Plan #1 continue the current medical regimen #2 I'll advise proceed with coronary angiogram
[2020-12-03] MEDS: HEPARIN SOD,PORK IN 0.45% NACL 25,000 UNIT in 0.45% NACL 1 250ML.BAG IV SCH (12:22)
[2020-12-03] MEDS ORDERED: fentaNYL (PF) 50 MCG/ML 2 ML AMP ONE (12:58)
[2020-12-03] MEDS ORDERED: VERAPAMIL 2.5 MG/ML 2 ML AMP ONE (12:58)
[2020-12-03] MEDS ORDERED: LIDOCAINE 1% INJ 10MG/ML (20 ML MDV) ONE (12:58)
[2020-12-03] MEDS ORDERED: ASPIRIN 325 MG TAB PO ONE (13:07)
[2020-12-03] MEDS ORDERED: fentaNYL (PF) 50 MCG/ML 2 ML AMP IV ONE (13:07)
[2020-12-03] MEDS: MIDAZOLAM 2 MG/2 ML VIAL IV ONE ×2 (13:07→13:41)
[2020-12-03] MEDS: LIDOCAINE 1% INJ 10MG/ML (10 ML MDV) SQ ONE ×2 (13:12→13:39)
[2020-12-03] MEDS ORDERED: HEPARIN SODIUM 1,000 UN/ML (10ML VL) ONE (13:13)
[2020-12-03] MEDS: VERAPAMIL SYRINGE (5 MG/10 ML) INTRAARTER ONE ×2 (13:14→14:11)
[2020-12-03] MEDS ORDERED: HEPARIN SODIUM 1,000 UN/ML (10ML VL) IV ONE ×2 (13:20→14:23)
[2020-12-03] MEDS ORDERED: IV FLUID CONTINUATION 300 ML IV ONE (13:47)
[2020-12-03] MEDS ORDERED: IOPAMIDOL-370 125ML BTL INJ ONE (14:00)
[2020-12-03] MEDS ORDERED: TICAGRELOR 90 MG TAB ONE (14:22)
[2020-12-03] MEDS ORDERED: TICAGRELOR 90 MG TAB PO ONE (14:32)
[2020-12-03] MEDS: NITROGLYCERIN 1000MCG/10ML SYRINGE INTRACORON ONE ×3 (14:39→14:54)
[2020-12-03] MEDS ORDERED: IOPAMIDOL-370 100ML BTL INJ ONE (14:58)
[2020-12-03] MEDS ORDERED: ZOLPIDEM 5 MG TAB PO PRN (15:19)
[2020-12-03] MEDS ORDERED: ATROPINE SULFATE 0.1 MG/ML 10ML SYRINGE IV PRN (15:19)
[2020-12-03] MEDS ORDERED: RX INFO: IV CONTRAST WAS GIVEN 1 EACH MISC MISCELLANE PRN (15:19)
[2020-12-03] MEDS ORDERED: MAG HYDROX/AL HYDROX/SIMETH 30 ML CUP PO PRN (15:19)
[2020-12-03] MEDS ORDERED: SODIUM CHLORIDE 0.9% 1,000 ML IV SCH (15:30)
[2020-12-03] MEDS: ATORVASTATIN 40 MG TAB PO SCH (20:40)
[2020-12-03] MEDS: TICAGRELOR 90 MG TAB PO SCH (20:40)
[2020-12-03] MEDS: AMIODARONE 200 MG TAB PO SCH (20:57)
[2020-12-03] MEDS ORDERED: MORPHINE SULFATE 4 MG/ML SYRINGE IVP STA (22:19)
[2020-12-04 02:10] LABS: Chol/HDL Ratio 3.32; Cholesterol 156 mg/dL (0-200); LDL Cholesterol,Calculated 94.2 mg/dL (0.0-131.0)
[2020-12-04] MEDS ORDERED: ONDANSETRON 4 MG/2 ML VIAL IVP PRN (05:38)
[2020-12-04] MEDS: LEVOTHYROXINE 25 MCG TAB PO SCH (05:44)
[2020-12-04] MEDS: ASPIRIN 81 MG PO SCH (08:34)
[2020-12-04] MEDS: AMIODARONE 200 MG TAB PO SCH ×2 (08:35→22:37)
[2020-12-04] MEDS: TICAGRELOR 90 MG TAB PO SCH ×2 (08:35→22:37)
[2020-12-04] MEDS ORDERED: METOPROLOL TARTRATE 12.5 MG TAB PO SCH (09:00)
[2020-12-04 09:25] LABS: African American GFR (CKD) >90 (>60 ml/min/1.73 sqM); Non-African American GFR(CKD) 87 (>60 ml/min/1.73 sqM)
[2020-12-04 09:32] LABS: Basophils % (A) 0 %; Eosinophils % (A) 0 %; HCT 43.8 % (39.0-53.0); Lymphocytes # (A) 0.5 k/uL (1.0-4.8); Lymphocytes % (A) 8 %; MCH 33.8 pg (25.0-35.0); MCHC 34.3 g/dL (31.0-37.0); MCV 98.7 fL (80.0-100.0); Mean Platelet Volume 7.8; Monocytes # (A) 0.4 k/uL (0-1.0); Monocytes % (A) 7 %; Neutrophils # (A) 5.3 k/uL (1.3-7.7); Neutrophils % (A) 84 %; Platelet Count 237 k/uL (150-450); RBC 4.44 m/uL (4.30-5.90); RDW 13.2 % (11.5-15.5); WBC 6.3 k/uL (3.8-10.6)
--- NOTE | 2020-12-04 10:32 | P.PN ---
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 tach, hypertension, hyperlipidemia, and hypothyroidism. Patient presented to the emergency department today status post reports of being shocked by his defibrillator 3 consecutive times. Patient r eports while [place] the golf [place] he suddenly felt a "head pope" in which he describes as almost a hot/flushed feeling in his face accompanied by slight tightness/esophageal spasm in his throat along with slight dizziness and lightheadedness followed by firing of his defibrillator 3 consecutive times. Patient states his friend was with him throughout entire event, and he denies having any loss of consciousness, chest pain, palpitations, shortness of breath, nausea, vomiting, diaphoresis, or experiencing any numbness/tingling/weakness in his extremities. Patient states the firing of his defibrillator did almost "knock the wind out of me for a moment" but states since event he is currently asymptomatic and experiencing no complaints. Per ED documentation patient was found by EMS to be in trigeminy followed by bigeminy with runs of V. tach and was given 150 mg of amiodarone while in route to our facility. Upon arrival to the emergency department, an EKG was completed showing sinus rhythm at 97 bpm with frequent PVCs. Patient was started on amiodarone infusion and labs were drawn. CBC, coagulation profile, and BMP were unremarkable. Troponin was elevated at 0.075 and patient with hypomagnesemia with magnesium of 1.7. Cardiology evaluated patient in ED patient started on heparin infusion and AICD was interrogated and currently awaiting interrogation report. Patient admitted under our services with consultation to cardiology. 12/03/20: Patient was seen and fully evaluated at the bedside this morning. He remains on amiodarone and heparin infusion. Troponins continue to elevate throughout the night from 0.075-1.370 and 1.530. Cardiology plans to take patient for cardiac catheterization later today. Patient currently denies having any headache, lightheadedness, dizziness, chest pain, palpitations, shortness of breath, or experiencing any numbness/tingling/weakness/swelling in his extremities. Labs reviewed. Echocardiogram being completed at this time. 12/04/20: Patient seen and fully evaluated at the bedside this morning. Cardiac catheterization was completed yesterday afternoon by Dr. Marte, this resulted in successful stenting to right RCA. Cardiac catheterization site to right groin was evaluated showing no signs of bleeding or hematoma. Patient's condition is stable at this time. He reports feeling extensive anxiety over her entire event. Patient requesting anti-anxiety medications. Reports Valium has worked for him well in the past. Patient reports current hospitalization and recently having to put his into a snf is causing him extensive anxiety. Patient denies having any chest pain, palpitations, shortness of breath, abdominal pain, nausea, vomiting, or experiencing any numbness/tingling/weakness in his extremities. He has had good appetite and vital signs stable. Patient started on Amiodarone 400 mg twice daily and Brillinta 90 mg twice daily. Per cardiology requires continued telemetry monitoring overnight with plans for di scharge tomorrow morning. Morning labs reviewed and stable. Physical exam: Vital signs reviewed and stable. General: Nontoxic, no distress and appears stated age. Derm: Skin warm and dry, normal coloration for ethnicity. Head: Atraumatic, normocephalic and symmetric. Eyes: EOMs intact, no lid lag, and anicteric sclera Mouth: no lip lesions, mucus membranes moist Cardiovascular: Regular rate and rhythm with normal S1S2, no murmur, positive posterior tibial pulses bilaterally, and cap refill < 2 seconds. AICD left anterior chest. Lungs: Respirations even, regular, and unlabored on room air. Lungs CTA bilaterally, no rhonchi, no rales, no wheezing, and no accessory muscle usage. Abdominal: soft, nontender to palpation, no guarding, no appreciable organomegaly Ext: ROM intact. No gross muscle atrophy, no edema, no contractures Neuro: Speech clear, face symmetrical and CN II-XII grossly intact with no noted focal neuro deficits Psych: Alert and oriented to person, place, time, and situation. Appropriate and pleasant affect. Assessment and Plan of Care: Spontaneous firing of AICD with history of nonsustained V. tach and bradycardia with pacemaker/defibrillator placement, CAD with previous ID and stent placement, and known ischemic cardiomyopathy with moderate to severely impaired EF between 30-35% NSTEMI Status post cardiac catheterization with stenting to RCA completed 12/03/20 -EKG was completed showing sinus rhythm at 97 bpm with frequent PVCs -Troponins elevated at 0.075, 1.370, and 1.530 -Amiodarone 400 mg twice daily -Brillinta 90 mg twice daily -Cardiology following, completed cardiac catheterization 12/03/20 resulting in stenting to RCA -Continuous telemetry monitoring -Daily aspirin -TSH was 2.550 -Initially hypomagnesemia, replaced Hypomagnesemia, resolved -We will continue to monitor closely with repeat a.m. labs. Hypertension -Monitor vital signs and continue daily medication regimen with lisinopril. Hypothyroidism -Continue home Synthroid 25 g each morning. -TSH 2.550 Hyperlipidemia -Heart healthy diet -Lipid profile with a.m. labs The patient is admitted with an anticipated greater than 2 midnight stay for evaluation of spontaneous firing of AICD CODE STATUS: Full code DVT prophylaxis: Heparin Discussed with: Patient and RN Anticipated discharge date: Tomorrow morning Anticipated discharge place: Home A total of 45 minutes was spent on the care of this complex patient more than 50% of the time was spent in counseling and care coordination. Objective - Vital Signs Vital signs: Vital Signs Temp 98.3 F 12/04/20 04:00 Pulse 60 12/04/20 04:00 Resp 18 12/04/20 04:00 BP 131/65 12/04/20 04:00 Pulse Ox 95 12/04/20 04:00 Intake & Output 12/03/20 12/04/20 12/04/20 18:59 06:59 18:59 Intake Total 735.894 851.948 120 Output Total 625 500 Balance 110.894 351.948 120 Weight 72.9 kg Intake: IV 250 660 Invasive Line 1 30 Invasive Line 3 30 Sodium Chloride 0.9% 1, 600 000 ml @ 75 mls/hr IV . [id number] [facility] Rx#:[id number] Intake, IV Titration 248.894 191.948 Amount Amiodarone 450 mg In 248.894 191.948 Dextrose 5% in Water 250 ml @ 0.5 MG/MIN 16.667 mls/hr IV .Q15H [facility] Rx#: [id number] Oral 237 120 Output: Urine 625 500 - Labs CBC & Chem 7: 12/04/20 08:19 12/04/20 08:19 Labs: Abnormal Lab Results - Last 24 Hours (Table) 12/03/20 12/04/20 Range/Units 11:35 08:19 Lymphocytes # 0.5 L (1.0-4.8) k/uL APTT 45.9 H (22.0-30.0) sec <Evelyn Quiñones - Last Filed: 12/04/20 19:04> Objective - Vital Signs Vital signs: Vital Signs Temp 97.9 F 12/04/20 16:00 Pulse 72 12/04/20 16:00 Resp 16 12/04/20 16:00 BP 111/68 12/04/20 16:00 Pulse Ox 96 12/04/20 16:00 Intake & Output 12/04/20 12/04/20 12/05/20 06:59 18:59 06:59 Intake Total 967.647 3186 Output Total 500 Balance 926.247 7235 Weight 72.9 kg 72.9 kg Intake: IV 660 60 Invasive Line 1 30 30 Invasive Line 3 30 30 Sodium Chloride 0.9% 1, 600 000 ml @ 75 mls/hr IV . [id number] [facility] Rx#:[id number] Intake, IV Titration 191.948 Amount Amiodarone 450 mg In 191.948 Dextrose 5% in Water 250 ml @ 0.5 MG/MIN 16.667 mls/hr IV .Q15H [facility] Rx#: [id number] Oral 1278 Output: Urine 500 Other: # Voids 2 - Labs CBC & Chem 7: 12/04/20 08:19 12/04/20 08:19 Labs: Abnormal Lab Results - Last 24 Hours (Table) 12/04/20 Range/Units 08:19 Lymphocytes # 0.5 L (1.0-4.8) k/uL Assessment and Plan Assessment: Patient seen and examined independently. Patient was also seen by Braden Montenegro NP and case was discussed. I am in agreement with subjective, physical exam, assessment and plan as written above and amended below. Up and ambulating in the hallways without difficulty. They've that he will need Valium if he is to remain in the hospital 1 more night. General: non toxic, no distress, appears at stated age Derm: warm, dry Head: atraumatic, normocephalic, symmetric Eyes: EOMI, no lid lag, anicteric sclera Mouth: no lip lesion, mucus membranes moist Neuro: CN II-XI grossly intact, no focal neuro deficits Psych: Alert, oriented, appropriate affect
[2020-12-04] MEDS ORDERED: diazePAM 5 MG TAB PO SCH (10:45)
--- NOTE | 2020-12-04 10:50 | P.PN ---
Subjective Progress Note Date: 12/04/20 Principal diagnosis: Coronary artery disease This is a very pleasant 80-year-old gentleman with coronary artery disease and ischemic cardiomyopathy as well as status post AICD who was admitted to the hospital with ICD shocks. He was started on amiodarone IV. He was ruled in for acute coronary syndrome. The troponin came in to be elevated. Subsequently the patient underwent a heart catheterization and stenting of the RCA. He was seen this morning. He is feeling better. He developed wheezing on beta katey and for that reason going to stop the beta katey. No more cardiac arrhythmia. He will be on dual antiplatelet therapy along with high intensity statin and also he will be on amiodarone by mouth. Objective - Vital Signs Vital signs: Vital Signs Temp 98.3 F 12/04/20 04:00 Pulse 60 12/04/20 04:00 Resp 18 12/04/20 04:00 BP 131/65 12/04/20 04:00 Pulse Ox 95 12/04/20 04:00 Intake & Output 12/03/20 12/04/20 12/04/20 18:59 06:59 18:59 Intake Total 735.894 851.948 120 Output Total 625 500 Balance 110.894 351.948 120 Weight 72.9 kg Intake: IV 250 660 Invasive Line 1 30 Invasive Line 3 30 Sodium Chloride 0.9% 1, 600 000 ml @ 75 mls/hr IV . [id number] [facility] Rx#:[id number] Intake, IV Titration 248.894 191.948 Amount Amiodarone 450 mg In 248.894 191.948 Dextrose 5% in Water 250 ml @ 0.5 MG/MIN 16.667 mls/hr IV .Q15H [facility] Rx#: [id number] Oral 237 120 Output: Urine 625 500 - Constitutional General appearance: Present: no acute distress - Respiratory Respiratory: bilateral: CTA - Cardiovascular Rhythm: regular Heart sounds: normal: S1, S2 - Labs CBC & Chem 7: 12/04/20 08:19 12/04/20 08:19 Labs: Abnormal Lab Results - Last 24 Hours (Table) 12/03/20 12/04/20 Range/Units 11:35 08:19 Lymphocytes # 0.5 L (1.0-4.8) k/uL APTT 45.9 H (22.0-30.0) sec Assessment and Plan Assessment: Assessment #1 AICD shocks #2 cardiomyopathy #3 acute coronary syndrome and status post PCI of the RCA #4 hypertension #5 dyslipidemia Plan #1 continue the current medical regimen #2 DC metoprolol #3 continue dual antiplatelet therapy and high intensity statin #4 continue amiodarone
[2020-12-04 12:55] VITALS: BMI 23.0
[2020-12-04 12:56] VITALS: RESP 16
[2020-12-04] MEDS: diazePAM 5 MG TAB PO SCH (22:37)
[2020-12-04] MEDS: ATORVASTATIN 40 MG TAB PO SCH (22:37)
[2020-12-05] MEDS: LEVOTHYROXINE 25 MCG TAB PO SCH (05:06)
[2020-12-05 07:14] LABS: Bacteria,Urine Occasional /hpf; WBC,Urine 3 /hpf (0-5)
[2020-12-05 07:15] LABS: Appearance,Urine Bloody (Clear); Color,Urine Dark Red
[2020-12-05 07:16] LABS: RBC,Urine >182 /hpf (0-5)
[2020-12-05 08:50] LABS: HCT 45.3 % (39.0-53.0); MCH 32.6 pg (25.0-35.0); MCHC 33.2 g/dL (31.0-37.0); MCV 98.3 fL (80.0-100.0); Mean Platelet Volume 7.6; Platelet Count 277 k/uL (150-450); RBC 4.61 m/uL (4.30-5.90); RDW 13.3 % (11.5-15.5); WBC 7.6 k/uL (3.8-10.6)
[2020-12-05] MEDS: AMIODARONE 200 MG TAB PO SCH (09:00)
[2020-12-05] MEDS: TICAGRELOR 90 MG TAB PO SCH (09:00)
[2020-12-05] MEDS: ASPIRIN 81 MG PO SCH (09:00)
[2020-12-05] MEDS: diazePAM 5 MG TAB PO SCH (09:04)
[2020-12-05 09:08] LABS: African American GFR (CKD) >90 (>60 ml/min/1.73 sqM); Anion Gap 9 mmol/L; Blood Urea Nitrogen 10 mg/dL (9-20); Calcium 9.1 mg/dL (8.4-10.2); Carbon Dioxide 21 mmol/L (22-30); Chloride 108 mmol/L (98-107); Glucose 116 mg/dL (74-99); Magnesium 1.9 mg/dL (1.6-2.3); Non-African American GFR(CKD) 82 (>60 ml/min/1.73 sqM); Sodium 138 mmol/L (137-145)
--- NOTE | 2020-12-05 09:14 | P.PN ---
Subjective Progress Note Date: 12/05/20 Principal diagnosis: Coronary artery disease This is a very pleasant 80-year-old gentleman with coronary artery disease and ischemic cardiomyopathy as well as status post AICD who was admitted to the hospital with ICD shocks. He was started on amiodarone IV. He was ruled in for acute coronary syndrome. The troponin came in to be elevated. Subsequently the patient underwent a heart catheterization and stenting of the RCA. The patient was seen this morning. His main complaint hematuria. I'm going to stop the Brilinta and start the patient on Plavix. Otherwise he denies any symptoms of chest pain or chest discomfort or any shortness of breath or dizziness or lightheadedness. Hemodynamically he is stable. He would like to go home. Objective - Vital Signs Vital signs: Vital Signs Temp 98.7 F 12/05/20 04:27 Pulse 77 12/05/20 04:27 Resp 16 12/05/20 04:27 BP 125/67 12/05/20 04:27 Pulse Ox 96 12/05/20 04:27 Intake & Output 12/04/20 12/05/20 12/05/20 18:59 06:59 18:59 Intake Total 1338 280 240 Balance 1338 280 240 Weight 72.9 kg 71.4 kg Intake: IV 60 40 Invasive Line 1 30 20 Invasive Line 3 30 20 Oral 1278 240 240 Other: # Voids 2 1 - Constitutional General appearance: Present: no acute distress - Respiratory Respiratory: bilateral: CTA - Cardiovascular Rhythm: regular Heart sounds: normal: S1, S2 - Labs CBC & Chem 7: 12/05/20 07:39 12/05/20 07:39 Labs: Abnormal Lab Results - Last 24 Hours (Table) 12/04/20 12/05/20 12/05/20 Range/Units 08:19 06:25 07:39 Lymphocytes # 0.5 L (1.0-4.8) k/uL Chloride 108 H (98-107) mmol/L Carbon Dioxide 21 L (22-30) mmol/L Glucose 116 H (74-99) mg/dL Urine RBC >182 H (0-5) /hpf Urine Bacteria Occasional H (None) /hpf Assessment and Plan Assessment: Assessment #1 AICD shocks #2 cardiomyopathy #3 acute coronary syndrome and status post PCI of the RCA #4 hypertension #5 dyslipidemia Plan #1 continue the current medical regimen #2 DC Brilinta and start Plavix #3 the patient potentially can be discharged home
[2020-12-05 11:26] VITALS: BP 102/55; PULSE 100; TEMP 97.9
--- NOTE | 2020-12-05 11:58 | P.CARDCATH ---
Date of Procedure: 12/03/20 Preoperative Diagnosis: Non-STEMI, ventricular tachycardia Postoperative Diagnosis: Critical lesion involving the proximal to mid RCA with patent stent in the distal RCA Procedure(s) Performed: Left heart catheterization without left ventriculography Description of Procedure: HISTORY: This is a 80-year-old gentleman with history of ischemic or disease at the previous inferior wall CA, ischemic cardiomyopathy with somewhat nonc ompliant with medication. He was playing golf when he started feeling of finding from the AICD. He was found to have episodes of ventricular tachycardia. His troponin went up to 1. He was advised to have cardiac catheterization for definitive diagnosis CONSENT:I have discussed the risks, benefits and alternative therapies for the above-mentioned procedure and for both sedation/analgesia as well as necessary blood product administration, if indicated, as they pertain to this patient. The patient has indicated understanding and acceptance of the risks and procedures discussed. PROCEDURE: Patient was brought to the lab in a fasting state. Patient was given some IV sedation. The right wrist is infiltrated with lidocaine. Right radial artery was entered using Seldinger technique and a 6-Syrian sheath was left in place. Selective coronary arteriography was attempted but the right coronary artery could not being engaged. Patient was also having significant discomfort. The procedure was abandoned from the right wrist and finished from the right groin approach. The right groin is infiltrated with lidocaine and right femoral artery was entered using Seldinger technique. A 6-Syrian catheter was left in place and selective coronary arteriography was performed. Patient tolerated the procedure well. Patient was found to have critical lesion in the RCA and went on to have stent placement by Dr. Alford. No immediate complications were noted . Conscious Sedation: Versed 1.5 mg Fentanyl. 50g Duration 31 minutes minutes HEMODYNAMICS:. The aortic pressure was 110/70 SELECTIVE CORONARY ARTERIOGRAPHY: LEFT MAIN: Normal length and free of occlusive disease THE LEFT ANTERIOR DESCENDING CORONARY ARTERY:. Mod erate to good caliber vessel free of any significant occlusive disease THE LEFT CIRCUMFLEX AND IS CORONARY ARTERY: Moderate caliber, free of occlusive disease THE RIGHT CORONARY ARTERY: Dominant vessel with a 85- 90% stenosis in the midportion and patent stent in the proximal and distal portions LEFT VENTRICULOGRAPHY: Not performed FINAL IMPRESSION:. Critical Lesion in the mid RCA PLAN: Stent placement of the RCA, being attempted by Dr. Alford PROGNOSIS:. Fair
--- NOTE | 2020-12-05 17:48 | P.DS ---
<Braden Montenegro - Last Filed: 12/05/20 17:37> Providers Expected date of discharge: 12/05/20 Hospital Course: Discharge Diagnosis: Spontaneous firing of AICD with history of nonsustained V. tach and bradycardia with pacemaker/defibrillator placement, CAD with previous ID and stent placement, and known ischemic cardiomyopathy with moderate to severely impaired EF between 30-35% NSTEMI with cardiac catheterization resulting in stenting to RCA completed 12/03/20 Hypomagnesemia, resolved Hypertension Hypothyroidism Hyperlipidemia Hospital Course: Patient is a very pleasant 80-year-old male with a past medical history of CAD with previous ID, ischemic cardiomyopathy with a moderately to severely impaired EF between 30-35%, bradycardia resulting in pacemaker/defibrillator placement, history of nonsustained V. tach, hypertension, hyperlipidemia, and hypothyroidism. Patient presented to the emergency department today status post reports of being shocked by his defibrillator 3 consecutive times. Patient reports while out on the golf course he suddenly felt a "head pope" in which he describes as almost a hot/flushed feeling in his face accompanied by slight tightness/esophageal spasm in his throat along with slight dizziness and lightheadedness followed by firing of his defibrillator 3 consecutive times. Patient states his friend was with him throughout entire event, and he denies having any loss of consciousness, chest pain, palpitations, shortness of breath, nausea, vomiting, diaphoresis, or experiencing any numbness/tingling/weakness in his extremities. Patient states the firing of his defibrillator did almost "knock the wind out of me for a moment" but states since event he is currently asymptomatic and experiencing no complaints. Per ED documentation patient was found by EMS to be in trigeminy followed by bigeminy with runs of V. tach and was given 150 mg of amiodarone while in route to our facility. Upon arrival to the emergency department, an EKG was completed showing sinus rhythm at 97 bpm with frequent PVCs. Patient was started on amiodarone infusion and labs were drawn. CBC, coagulation profile, and BMP were unremarkable. Troponin was elevated at 0.075 and patient with hypomagnesemia with magnesium of 1.7. Cardiology evaluated patient in ED patient started on heparin infusion and AICD was interrogated. Patient admitted under our services with consultation to cardiology. His troponin levels continue to elevate from 0.075 to 1.370 and finally 1.530. Patient was taken to cardiac cath where he was found to have a 90% stenosis of right coronary artery requiring intervention and he underwent successful stenting of RCA. Patient was started on Plavix, aspirin, atorvastatin, and amiodarone. Patient was medically stable and also cleared by cardiology for discharge home. Patient instructed to follow up outpatient with PCP, Dr. Ivey in [address] Carlisle, 3d animator in 1 week. Patient also instructed to follow-up outpatient with urologist secondary to having episode of hematuria during hospitalization. Patient given discharge instructions and all questions answered. Physical exam: Patient seen and fully evaluated at the bedside this morning. Patient's condition stable at this time. He did have episode of hematuria overnight status post Vital signs reviewed and stable. General: Nontoxic, no distress and appears stated age. Derm: Skin warm and dry, normal coloration for ethnicity. Head: Atraumatic, normocephalic and symmetric. Eyes: EOMs intact, no lid lag, and anicteric sclera Mouth: no lip lesions, mucus membranes moist Cardiovascular: Regular rate and rhythm with normal S1S2, no murmur, positive posterior tibial pulses bilaterally, and cap refill < 2 seconds. AICD left anterior chest. Lungs: Respirations even, regular, and unlabored on room air. Lungs CTA bilaterally, no rhonchi, no rales, no wheezing, and no accessory muscle usage. Abdominal: soft, nontender to palpation, no guarding, no appreciable organomegaly Ext: ROM intact. No gross muscle atrophy, no edema, no contractures Neuro: Speech clear, face symmetrical and CN II-XII grossly intact with no noted focal neuro deficits Psych: Alert and oriented to person, place, time, and situation. Appropriate and pleasant affect. A total of 45 minutes of time were spent preparing this complex discharge summary. Patient Condition at Discharge: Stable Plan - Discharge Summary Discharge Rx Participant: No New Discharge Prescriptions: New Aspirin 81 mg PO DAILY 30 Days #30 tab Amiodarone [Cordarone] 400 mg PO BID 30 Days #60 tablet Atorvastatin [Lipitor] 40 mg PO HS 30 Days #30 tablet Clopidogrel Bisulfate [Plavix] 75 mg PO DAILY 30 Days #30 tab Amiodarone [Cordarone] 400 mg PO DAILY 30 Days #120 tab Continue lisinopriL [Zestril] 2.5 mg PO BID Levothyroxine Sodium [Synthroid] 25 mcg PO DAILY Chlorhexidine Gluconate [Peridex] 15 ml PO BID Azelastine HCl [Optivar 0.05% Ophth Soln] 1 drop BOTH EYES BID PRN PRN Reason: Dry Eye(S) Discontinued Amoxicillin 500 mg PO Q8H Discharge Medication List lisinopriL [Zestril] 2.5 mg PO BID 07/18/15 [History] Levothyroxine Sodium [Synthroid] 25 mcg PO DAILY 09/13/15 [History] Azelastine HCl [Optivar 0.05% Ophth Soln] 1 drop BOTH EYES BID PRN 12/02/20 [History] Chlorhexidine Gluconate [Peridex] 15 ml PO BID 12/02/20 [History] Amiodarone [Cordarone] 400 mg PO BID 30 Days #60 tablet 12/05/20 [Rx] Amiodarone [Cordarone] 400 mg PO DAILY 30 Days #120 tab 12/05/20 [Rx] Aspirin 81 mg PO DAILY 30 Days #30 tab 12/05/20 [Rx] Atorvastatin [Lipitor] 40 mg PO HS 30 Days #30 tablet 12/05/20 [Rx] Clopidogrel Bisulfate [Plavix] 75 mg PO DAILY 30 Days #30 tab 12/05/20 [Rx] Follow up Appointment(s)/Referral(s): Fam Trent MD [STAFF PHYSICIAN] - 2 Weeks Jennifer Ivey MD [Primary Care Provider] - 1-2 days (please call when office is open to make follow-up appointment) Jeannine Carlisle MD [STAFF PHYSICIAN] - 1 Week (please call office when open to make follow-up appointment) Patient Instructions/Handouts: *[facility] - After Heart Catheterization - House Visitor Instructions Activity/Diet/Wound Care/Special Instructions: Activity: As tolerated Diet: Heart healthy diet Special Instructions: Please take all medications as directed without missing any doses. You have been started on Plavix, aspirin, atorvastatin, and amiodarone. You will need to follow up with your primary care doctor, Dr. Ivey in [address] Carlisle Director Of Casino in 1 week. It is also important for you to follow up with urologist, Dr. Trent for evaluation in the next 2 weeks secondary to having an episode of blood in your urine. Please monitor your cardiac catheter site for any signs of bleeding, swelling, redness, or drainage. If this occurs please call and notify your 3d animator immediately. Thank you for allowing us to participate in your care, it was truly a pleasure having you for our patient!! Discharge Disposition: HOME SELF-CARE <Evelyn Quiñones - Last Filed: 12/05/20 18:39> Providers Date of admission: 12/02/20 12:11 Attending physician: Evelyn Quiñones DO Consults: 12/02/20 12:11 Consult Physician Urgent Consulting Provider: Teo Marte Consult Reason/Comments: Ventricular tachycardia Do you want consulting provider notified?: Yes 12/03/20 15:19 Consult Physician Routine Consulting Provider: [facility] Consult Reason/Comments: Post Interventional patient Do you want consulting provider notified?: Already Contacted Primary care physician: Jennifer Ivey MD Hospital Course: Braden Montenegro NP rendered care for this patient independently, reviewed the findings and plan as documented in the note above. I did not physically speak with or examine the patient on this date.
[2020-12-06] MEDS ORDERED: CLOPIDOGREL 75 MG TAB PO SCH (09:00)
--- NOTE | 2020-12-07 08:31 | P.PRCINT ---
Percutaneous Coronary Int. - Percutaneous Coronary Intervention Percutaneous Coronary Intervention: PROCEDURES PERFORMED: Right coronary angiography, PCI of mid RCA with 4.0 x 23mm Xience MATT, post dilated with a 5.0 balloon, IVUS RCA DATE OF PROCEDURE: 12/03/2020 INDICATION: AICD shock, NSTEMI HISTORY: Patient is a pleasant 80 year old male with history of coronary artery disease status post prior stenting to the RCA, AICD. Patient was playing golf when he had AICD defibrillation. His found to have non-STEMI and therefore heart catheterization was recommended. Patient had diagnostic heart catheterization performed by my partner and I was asked to perform PCI of the RCA. PROCEDURE: After the risks, benefits and alternatives of the above mentioned procedure explained in detail with the patient, informed consent had been obtained. Patient already been prepped and draped in usual fashion and a 6Fr sh eath had been placed in the right femoral artery. A 6 [place] 2.0 guide was used to engage the RCA which had an anterior takeoff. Heparin was given for ACT > 250. A 0.014 BMW wire was advanced into the distal RCA. With the help of a Guideliner, a 3.5 x 12mm balloon was used to predilate the lesion. Next a 4.0 x 23 mm Xience MATT was advanced and deployed. IVUS was performed to assess for si zing and the [place] vessel was noted to be 5.0 diamter. There was distal thrombus and the stent was not fully apposed. Therefore the stent was post dilated with a 5.0 NC balloon. Pre intervention there was 80% stenosis and BRIDGER 3 flow and post intervention there was <10% stenosis, BRIDGER 3 flow and no dissection. A right femoral angiogram showed anatomy not suitable for closure and therefore the sheath was left in place to be manually pulled later. The patient tolerated the procedure well. Patient was transported back to the post catheterization holding area in stable condition. Conscious Sedation: Patient was monitored under the direct supervision of vision of myself for conscious sedation using Versed and fentanyl for a total duration of 40 minutes FINAL IMPRESSION: 1. 80% RCA stenosis s/p PCI of mid RCA with 4.0 x 23mm Xience MATT, post dilated with a 5.0 balloon PLAN: 1. Aggressive risk factor modification per most recent ACC/AHA guidelines. 2. Continue dual antiplatelets for 12 months.
--- NOTE | 2020-12-16 08:47 | ECHOF ---
Referral Reason:ACS MEASUREMENTS -------- HEIGHT: 182.9 cm WEIGHT: 72.6 kg BP: IVSd: 1.0 cm (0.6 - 1.1) LVIDd: 6.9 cm (3.9 - 5.3) LVPWd: 1.2 cm (0.6 - 1.1) IVSs: 1.1 cm LVIDs: 6.6 cm LVPWs: 1.5 cm LAESV Index (A-L): 64.40 ml/m Ao Diam: 3.8 cm (2.0 - 3.7) AV Cusp: 1.4 cm (1.5 - 2.6) MV EXCURSION: 22.126 mm (> 18.000) MV EF SLOPE: 69 mm/s (70 - 150) EPSS: 3.9 cm MV E Derick: 0.42 m/s MV DecT: 291 ms MV A Derick: 0.97 m/s MV E/A Ratio: 0.43 RAP: 5.00 mmHg RVSP: 15.50 mmHg FINDINGS -------- AICD The left ventricle is severely dilated. There is moderate global hypokinesis of LV . Overall left ventricular systolic function is severely impaired with, an EF between 20 - 25 %. The right ventricle is normal in size. LA is severely dilated >40 ml/m2 The right atrial size is normal. There is mild aortic regurgitation. Mild mitral regurgitation is present. Mild tricuspid regurgitation present. Right ventricular systolic pressure is normal at < 35 mmHg. There is no pulmonic regurgitation present. There is no pericardial effusion. CONCLUSIONS -------- 1. AICD 2. The left ventricle is severely dilated. 3. There is moderate global hypokinesis of LV . 4. Overall left ventricular systolic function is severely impaired with, an EF between 20 - 25 %. 5. The right ventricle is normal in size. 6. LA is severely dilated >40 ml/m2 7. The right atrial size is normal. 8. There is mild aortic regurgitation. 9. Mild mitral regurgitation is present. 10. Mild tricuspid regurgitation present. 11. There is no pulmonic regurgitation present. 12. There is no pericardial effusion. ACCOUNT ADVISOR: Mayelin Cervantes RDCS
== END 2020-12-05 12:27 | disposition home or self-care (01) | DRG 247 ==
LOC: EC 10:47 → 3SCARD 12:11
PROVIDERS: ADMIT Internal Medicine; ATTEND Internal Medicine
PROC: B2101ZZ Fluoroscopy of Single Coronary Artery using Low Osmolar Contrast (ICD-10-PCS; 2020-12-03)
PROC: B240ZZ3 Ultrasonography of Single Coronary Artery, Intravascular (ICD-10-PCS; 2020-12-03)
PROC: 027034Z Dilation of Coronary Artery, One Artery with Drug-eluting Intraluminal Device, Percutaneous Approach (ICD-10-PCS; 2020-12-03 17:40)
PROC: 4A023N7 Measurement of Cardiac Sampling and Pressure, Left Heart, Percutaneous Approach (ICD-10-PCS; principal; 2020-12-05)
PROC: B2151ZZ Fluoroscopy of Left Heart using Low Osmolar Contrast (ICD-10-PCS; 2020-12-05)
DX: I21.4 Non-ST elevation (NSTEMI) myocardial infarction (principal); I47.2 Ventricular tachycardia; E03.9 Hypothyroidism, unspecified; E78.5 Hyperlipidemia, unspecified; R31.9 Hematuria, unspecified; I25.10 Atherosclerotic heart disease of native coronary artery without angina pectoris; E83.42 Hypomagnesemia; F41.9 Anxiety disorder, unspecified; I10 Essential (primary) hypertension; I25.2 Old myocardial infarction; I25.5 Ischemic cardiomyopathy; I49.3 Ventricular premature depolarization; Z79.82 Long term (current) use of aspirin; Z20.822 Contact with and (suspected) exposure to COVID-19; Z79.890 Hormone replacement therapy; Z79.899 Other long term (current) drug therapy; Z87.891 Personal history of nicotine dependence; Z95.5 Presence of coronary angioplasty implant and graft; Z95.810 Presence of automatic (implantable) cardiac defibrillator
CPT/HCPCS: 36415; 71045; 80048; 80053; 80061; 81001; 82565; 83735; 84443; 84484; 85025; 85027; 85610; 85730; 92978; 93005; 93306; 93454; 96365; 96366; 96368; 99291

== ENCOUNTER → 2021-03-07 | Outpatient (CLI) | payer MEDICARE ==
[2021-03-07 07:57] LABS: HCT 40.4 % (39.0-53.0); HGB 14.2 gm/dL (13.0-17.5); MCH 34.2 pg (25.0-35.0); MCV 97.9 fL (80.0-100.0); Mean Platelet Volume 8.1; Platelet Count 219 k/uL (150-450); RBC 4.13 m/uL (4.30-5.90); RDW 12.5 % (11.5-15.5); WBC 5.6 k/uL (3.8-10.6)
[2021-03-07 08:12] LABS: Potassium 4.4 mmol/L (3.5-5.1)
== END | disposition home or self-care (01) ==
LOC: LABWHC1 06:58
PROVIDERS: ATTEND Internal Medicine Clinical Cardiac Electrophysiology
DX: Z01.812 Encounter for preprocedural laboratory examination (principal); I25.5 Ischemic cardiomyopathy
CPT/HCPCS: 36415; 80051; 82565; 84520; 85027

== ENCOUNTER 2021-03-10 08:38 | Day surgery (SDC) | payer MEDICARE ==
[2021-03-08 14:30] VITALS: BMI 23.9
[~2021-03-10 08:38] MED LIST changes: +LIDOCAINE 1% (10MG/ML) FOR IV START INTRADERMA PRN; +SODIUM CHLORIDE 0.9% 1,000 ML IV SCH
[2021-03-10] MEDS ORDERED: SODIUM CHLORIDE 0.9% 500 ML 500 ML IV ONE (09:01)
[2021-03-10 09:09] VITALS: RESP 16; TEMP 97.9
[2021-03-10] MEDS ORDERED: PROPOFOL 10 MG/ML 20 ML VIAL IV ONE (10:33)
--- NOTE | 2021-03-10 11:50 | P.EPPROC ---
- EP Procedure Note Electrophysiology Procedure Note: Diagnosis Ventricular tachycardia/ventricular fibrillation Underlying ischemic or new myopathy Status post stenting Intolerant of amiodarone, discontinued On carvedilol and lisinopril Procedure Noninvasive program stimulation ICD interrogation with reprogramming Sinus cycle length 867 ms, atrial paced, MN interval 139 ms and QRS 90 ms, QT interval 403 ms Patient has a [employer] dual-chamber ICD This was reprogrammed rate responsiveness was temporally turned off ICD therapies were appropriately reprogrammed Appropriate antitachycardia pacing cardioversion defibrillations reprogrammed Noninvasive program stimulation was performed Double extrastimuli at [address] chacha performed No VT induced Burst ablation for 400 ms down to 260 ms. 2-1 non-capture at that point No VT induced Dual AICD the reprogrammed with appropriate antitachycardia pacing cardioversion and defibrillation and appropriate bradycardia pacing Impression No inducible ventricular tachycardia ventricular fibrillation at noninvasive program stimulation Plan is medical treatment for now with heart failure medications only If in the future he has recurrent episodes of VT nonsustained or sustained VT with ICD shock we will proceed with an EP study and ablation for VT Plan Reduce lisinopril to 2.5 g once daily. Patient's blood pressure at the lower limits of normal Continue carvedilol 3.125 mg twice daily The importance of carvedilol was emphasized Continue Plavix and Lipitor Follow Dr. Carlisle
[2021-03-10 12:25] VITALS: BP 136/72; PULSE 61
== END 2021-03-10 12:25 | disposition home or self-care (01) ==
LOC: CATHEP 08:38
PROVIDERS: ATTEND Internal Medicine Clinical Cardiac Electrophysiology
DX: Z45.02 Encounter for adjustment and management of automatic implantable cardiac defibrillator (principal); I49.01 Ventricular fibrillation; I47.2 Ventricular tachycardia; I08.3 Combined rheumatic disorders of mitral, aortic and tricuspid valves; I25.10 Atherosclerotic heart disease of native coronary artery without angina pectoris; I10 Essential (primary) hypertension; I65.23 Occlusion and stenosis of bilateral carotid arteries; F17.210 Nicotine dependence, cigarettes, uncomplicated; E78.5 Hyperlipidemia, unspecified; Z82.49 Family history of ischemic heart disease and other diseases of the circulatory system; Z95.810 Presence of automatic (implantable) cardiac defibrillator; Z79.899 Other long term (current) drug therapy; Z79.82 Long term (current) use of aspirin; Z20.822 Contact with and (suspected) exposure to COVID-19; Z88.8 Allergy status to other drugs, medicaments and biological substances
CPT/HCPCS: 93642; 87635; J2704